=== PATIENT | male | born 1935 | race Caucasian/White ===

== ENCOUNTER → 2017-01-05 09:47 | Outpatient (CLI) | payer MEDICARE, OTHER ==
[2015-09-05 07:10] VITALS: BMI 27.1
[~2017-01-05 09:47] MED LIST: INVANZ 1 GM/NS 11 G1 IV; LEVAQUIN500 MG PO; NEXIUM40 MG PO; VITAMIN D31000 UNI2 PO; ZOSYN 3.3753.375 G1 IV
== END | disposition home or self-care (01) ==
LOC: D.ECHO 09:47
DX: R06.09 Other forms of dyspnea (principal); R94.31 Abnormal electrocardiogram [ECG] [EKG]; I49.3 Ventricular premature depolarization; I20.9 Angina pectoris, unspecified

== ENCOUNTER 2017-02-01 06:22 | Outpatient (CLI) | payer MEDICARE, OTHER ==
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
[2017-02-01] MEDS ORDERED: PROTONIX40 MG PO (06:41)
[2017-02-01 06:50] VITALS: BP 146/64; BMI 27.8
[2017-02-01 07:10] LABS: BASOPHILS 0.7 % (0-2); HEMATOCRIT 46.2 % (42.0-54.0); HEMOGLOBIN 15.9 g/dL (13.5-17.5); IMMATURE GRANULOCYTES 0.2 % (0-5); LYMPHOCYTES 24.7 % (15-50); MCH 31.5 pg (26.0-34.0); MCHC 34.4 g/dL (31.0-37.0); MCV 91.5 fL (80.0-100.0); MEAN PLATELET VOLUME 11.4 fL (7.4-10.4); MONOCYTES 10.7 % (2-11); NEUTROPHILS 52.7 % (40-80); PLATELET COUNT 133 10x3/uL (130-400); RBC 5.05 10x6/uL (4.20-6.10); RDW 12.7 % (11.5-14.5); WBC 5.8 10x3/uL (4.8-10.8)
[2017-02-01 07:22] LABS: ANION GAP 10.3 mmol/L (8-16); CARBON DIOXIDE 29.7 mmol/L (21.0-32.0); CREATININE - SERUM 1.2 mg/dL (0.6-1.3)
[2017-02-01] MEDS ORDERED: PLAVIX75 MG PO (09:46)
--- NOTE | 2017-02-01 09:50 | NUR ---
2L NC, NO RESP DISTRESS NOTED. RIGHT WRIST TR BAND CDI, NO BLEEDING OR HEMATOMA NOTED. NO C/O PAIN OR NAUSEA. ANGIOMAX GTT INFUSING PER ORDERS. FAMILY AT BEDSIDE, CALL LIGHT WITHIN REACH.
--- NOTE | 2017-02-01 10:09 | NUR ---
ANGIOMAX INFUSION COMPLETE.
--- NOTE | 2017-02-01 10:30 | NUR ---
1030 TR BAND RIGHT WRIST IS CDI, NO BLEEDING OR HEMATOMA NOTED. FINGERS WARM, CAP REFILL IS BRISK. PT DENIES ANY C/O CHEST PAIN OR NAUSEA. SANDWICH AND COFFEE SERVED. FAMILY AT BEDSIDE, CALL LIGHT IN REACH.
--- NOTE | 2017-02-01 11:03 | NUR ---
DENIES ANY C/O. CONCETTA GRAPES AND PO FLUIDS WITH NO C/O. TR BAND CDI, NO BLEEDING OR HEMATOMA NOTED. PULSES PALPABLE, FINGERS WARM. NSR, RATE 73, DENIES ANY C/O CHEST PAIN. MULTIPLE FAMILY AT BEDSIDE, CALL LIGHT IN REACH.
--- NOTE | 2017-02-01 11:45 | NUR ---
1145 PT AHS VOIDED 500 CC CLEAR YELLOW URINE USING URINAL. CONCETTA GRAPES AND PO FLUIDS WITH NO C/O NAUSEA. TR BAND CDI, NO BLEEDING OR HEMATOMA NOTED. FAMILY AT BEDSIDE, CALL LIGHT IS IN REACH.
--- NOTE | 2017-02-01 12:41 | NUR ---
1240 3 CC OF AIR REMOVED FROM TR BAND WITH NO BLEEDING OR HEMATOMA NOTED.
--- NOTE | 2017-02-01 13:45 | NUR ---
1345 IV DC'D WITH CATH INTACT. REVIEWED DC INSTRUCTIONS AND PT VERBALZES UNDERSTANDING. PT DRESSING FOR DC TO HOME.
--- NOTE | 2017-02-01 14:33 | NUR ---
1330 ALL AIR HAS BEEN REMOVED FROM TR BAND WITH NO BLEEDING OR HEMATOMA NOTED. PT DENIES ANY C/O. VSS. DAUGHTER AT BEDSIDE.
--- NOTE | 2017-02-01 14:35 | NUR ---
1400 DC INSTRUCTIONS HAVE BEEN REVIEWED WITH PT AND DAUGHTER WHO VERBALIZE UNDERSTANDING. [facility] HAS BEEN CALLED TO [facility] PER PT REQUEST. 2X2 AND TEGADERM TO RIGHT WRIST CATH SITE IS CDI, NO BLEEDING OR HEMATOMA NOTED. FINGERS WARM, CAP REFILL BRISK, PULSES TO RIGHT HAND PALPABLE. WRIST IMMOBILIZER IN PLACE. PT DENIES ANY C/O AT THIS TIME. PT ESCORTED TO PRIVATE AUTO VIA WC BY NURSE WTIH DAUGHTER DRIVING HIM HOME.
== END 2017-02-01 14:00 | disposition home or self-care (01) ==
LOC: D.CATH 06:22
PROVIDERS: Internal Medicine Cardiovascular Disease
DX: I20.9 Angina pectoris, unspecified (principal); R07.9 Chest pain, unspecified; R06.00 Dyspnea, unspecified; R94.30 Abnormal result of cardiovascular function study, unspecified; Z01.812 Encounter for preprocedural laboratory examination
CPT/HCPCS: 93458; C9600

== ENCOUNTER → 2017-03-17 17:14 | Outpatient (CLI) | payer MEDICARE, OTHER ==
[~2017-03-17 17:14] MED LIST changes: +PLAVIX75 MG PO; +PROTONIX40 MG PO
[2017-03-17 18:03] LABS: CHOL - HDL RATIO 2.7 ratio (2.3-4.9); LDL-HDL RATIO 1.2 ratio (1.5-3.5)
== END | disposition home or self-care (01) ==
LOC: D.LABREF 17:14
PROVIDERS: Internal Medicine Cardiovascular Disease
DX: E78.5 Hyperlipidemia, unspecified (principal)

== ENCOUNTER → 2017-08-18 09:12 | Outpatient (CLI) | payer MEDICARE, OTHER ==
--- NOTE | ~2017-08-18 | EC ---
PATIENT:GLENROY CRESPO DATE OF SERVICE: 08/18/17 SEX: M MEDICAL RECORD: [id number] DATE OF : 31 LOCATION:[facility] AGE OF PATIENT: 82 ADMISSION DATE: 08/18/17 REFERRING PHYSICIAN: INTERPRETING PHYSICIAN: CAMILLE CEDEÑO MD ECHOCARDIOGRAM REPORT ECHO CHARGES 4 ECHO COMPLETE Date: 08/18 CLINICAL DIAGNOSIS: DYSPNEA,ANGINA HX OF CAD ECHOCARDIOGRAPHIC MEASUREMENTS (adult normal given) AC root (d.<3.7cm) 4.0 cm LV Septum d (<1.2 cm> 1.5 cm Valve Excursion 1.9 cm LV Septum (systole) 1.6 cm Left Atria (s.<4.0cm> 3.6 cm LVPW d(<1.2cm) 1.4 cm RV (d.<2.3cm) 3.8 cm LVPW (sytole) 1.9 cm LV diastole(<5.6CM) 5.8 cm MV E-F(>70mm/sec) cm LV systole 4.0 cm LVOT Diameter 1.8 cm MV exc.(>10mm) 1.4 cm Est.ejection fraction (50-75%) % DOPPLER: LVIT cm/sec A 108 cm/sec E 67.0 cm/sec LA cm/sec RVSP 36 mmHg LVOT 113 cm/sec AOP1/2T m/s Asc. Ao 136 cm/sec RVOT cm/sec RA cm/sec PA 122 cm/sec AV Gradient Peak 7.42 mmHg AV Mean 3.62 mmHg AV Area 2.0 cm MV Gradient Peak 5.44 mmHg MV Mean 1.81 mmHg MV Area cm COMMENTS: Courtroom Reporter: 2 MANINDER RAMIREZ Florist Designer: 4 Dr. Cedeño TAPE# PACS Pericardial Effusion N DATE OF SERVICE: PROCEDURE: The patient underwent transthoracic echocardiogram. FINDINGS: 1. The left ventricle has left ventricular hypertrophy, inflow characteristics consistent with diastolic dysfunction, ejection fraction of 60%. No obvious regional wall motion abnormalities. There was considerable amount of heart rate variability and there was some bradycardia we had visualized during the exam. 2. The right ventricle is dilated with good function. ECHOCARDIOGRAM REPORT [id number] GLENROY CRESPO 3. The left atrium is normal size, normal function. 4. The aortic valve is sclerotic, but otherwise normal. 5. Mitral valve is normal structurally with trace to mild mitral regurgitation. 6. Tricuspid valve has trace to mild tricuspid regurgitation. RVSP is mildly elevated at 30-35 mmHg. 7. The pericardium is normal. 8. The right atrium is mildly dilated. CONCLUSION: This is a patient with normal LV systolic function and evidence of hypertensive heart disease. TRANSINT:[id number] Voice Confirmation ID: [id number] DOCUMENT ID: [id number] CAMILLE CEDEÑO MD at 0819 CC: [id number] DICTATION DATE: 08/23/17 1108 MANAGER ASSET MANAGEMENT: 08/23/17 1210 DEP CLI 08/18/17 [facility] [address] [facility] [place] [address]
== END | disposition home or self-care (01) ==
LOC: D.ECHO 09:12
DX: R06.00 Dyspnea, unspecified (principal); I20.9 Angina pectoris, unspecified

== ENCOUNTER → 2017-11-10 17:50 | Outpatient (CLI) | payer MEDICARE, OTHER ==
[2017-11-10 18:37] LABS: CHOL - HDL RATIO 2.9 ratio (2.3-4.9); LDL-HDL RATIO 0.9 ratio (1.5-3.5)
== END | disposition home or self-care (01) ==
LOC: D.LABREF 17:50
PROVIDERS: Internal Medicine Cardiovascular Disease
DX: E78.5 Hyperlipidemia, unspecified (principal)

== ENCOUNTER → 2018-11-24 08:57 | Outpatient (CLI) | payer MEDICARE, OTHER ==
--- NOTE | 2018-11-28 09:29 | EC ---
PATIENT:GLENROY CRESPO DATE OF SERVICE: 11/24/18 SEX: M MEDICAL RECORD: [id number] DATE OF : [birth year] LOCATION:D.[facility] AGE OF PATIENT: 83 ADMISSION DATE: 11/24/18 REFERRING PHYSICIAN: INTERPRETING PHYSICIAN: NETO VILLAR MD ECHOCARDIOGRAM REPORT ECHO CHARGES 4 ECHO COMPLETE Date: 11/24/18 CLINICAL DIAGNOSIS: MURMUR H/O CAD/HTN ECHOCARDIOGRAPHIC MEASUREMENTS (adult normal given) AC root (d.<3.7cm) 3.9 cm LV Septum d (<1.2 cm> 1.6 cm Valve Excursion 2.0 cm LV Septum (systole) 1.9 cm Left Atria (s.<4.0cm> 3.5 cm LVPW d(<1.2cm) 1.4 cm RV (d.<2.3cm) 2.4 cm LVPW (sytole) 2.1 cm LV diastole(<5.6CM) 5.2 cm MV E-F(>70mm/sec) cm LV systole 3.5 cm LVOT Diameter 2.1 cm MV exc.(>10mm) cm Est.ejection fraction (50-75%) % DOPPLER: LVIT cm/sec A 108 cm/sec E 71.0 cm/sec LA cm/sec RVSP 29.0 mmHg LVOT 104 cm/sec AOP1/2T m/s Asc. Ao 114 cm/sec RVOT 59.0 cm/sec RA cm/sec PA 104 cm/sec AV Gradient Peak 5.2 mmHg AV Mean 3.2 mmHg AV Area 2.9 cm MV Gradient Peak 7.2 mmHg MV Mean 1.9 mmHg MV Area cm COMMENTS: [facility] Director: Koki BROWNOE Supervisor Cytogenetic Laboratory: 3 Dr. Cunningham TAPE# PACS Pericardial Effusion N DATE OF SERVICE: 11/24/2018 Adequate 2-D echo, color-flow and spectral Doppler, and M-mode. LVH is present. LV internal dimensions are normal. Wall motion is normal. EF is greater than or equal to 55%. Aortic valve sclerosis without stenosis by Doppler interrogation. Left atrium is normal at 3.5 cm. Mitral valve shows no prolapse. Trace MR. Right-sided chambers are grossly normal. Trace TR. TRANSINT:[id number] Voice Confirmation ID: [id number] DOCUMENT ID: [id number] ECHOCARDIOGRAM REPORT [id number] GLENROY CRESPO GREGORY A MD at 0929 CC: [id number] DICTATION DATE: 11/27/18 1509 TAR ROOFER: 11/27/18 1558 DEP CLI 11/24/18 [place] [id number] [place] [id number]
== END | disposition home or self-care (01) ==
LOC: D.HCCARDIO 08:57
PROVIDERS: ATTEND Internal Medicine Interventional Cardiology
DX: R01.1 Cardiac murmur, unspecified (principal)

== ENCOUNTER → 2019-10-03 13:10 | Outpatient (CLI) | payer MEDICARE, OTHER ==
--- NOTE | ~2019-10-03 | EC ---
PATIENT:GLENROY CRESPO DATE OF SERVICE: 10/03/19 SEX: M MEDICAL RECORD: [id number] DATE OF : [birth year] LOCATION:D.[facility] AGE OF PATIENT: 84 ADMISSION DATE: 10/03/19 REFERRING PHYSICIAN: INTERPRETING PHYSICIAN: NETO VILLAR MD ECHOCARDIOGRAM REPORT ECHO CHARGES 4 ECHO COMPLETE Date: 10/03/19 CLINICAL DIAGNOSIS: HX OF CAD/HTN/AORTIC SCLEROSIS ECHOCARDIOGRAPHIC MEASUREMENTS (adult normal given) AC root (d.<3.7cm) 4.0 cm LV Septum d (<1.2 cm> 1.3 cm Valve Excursion 1.8 cm LV Septum (systole) 1.5 cm Left Atria (s.<4.0cm> 3.7 cm LVPW d(<1.2cm) 1.3 cm RV (d.<2.3cm) 4.2 cm LVPW (sytole) 1.6 cm LV diastole(<5.6CM) 5.7 cm MV E-F(>70mm/sec) cm LV systole 4.0 cm LVOT Diameter 2.0 cm MV exc.(>10mm) 1.3 cm Est.ejection fraction (50-75%) % DOPPLER: LVIT cm/sec A 105.0cm/sec E 63.0 cm/sec LA cm/sec RVSP 23 mmHg LVOT 99 cm/sec AOP1/2T m/s Asc. Ao 122 cm/sec RVOT 86 cm/sec RA cm/sec PA 94 cm/sec AV Gradient Peak 5.97 mmHg AV Mean 2.52 mmHg AV Area 2.7 cm MV Gradient Peak 5.58 mmHg MV Mean 1.65 mmHg MV Area cm COMMENTS: Pan Dumper: 2 MANINDER RAMIREZ Colored Liquid Plastic Applier: 3 Dr. Cunningham TAPE# PACS Pericardial Effusion N DATE OF SERVICE: Adequate 2D, color flow imaging, spectral Doppler, and M-Mode. Mild LVH. LV internal dimensions are normal. Wall motion is normal. EF is greater than or equal to 55%. Aortic valve is tricuspid. No evidence of stenosis by Doppler interrogation. Left atrium is normal at 3.7 cm. Mitral valve shows no prolapse. Trace MR. Right-sided chambers are grossly normal. Trace TR. ECHOCARDIOGRAM REPORT [id number] GLENROY CRESPO TRANSINT:[id number] Voice Confirmation ID: [id number] DOCUMENT ID: [id number] NETO VILLAR MD CC: [id number] DICTATION DATE: 10/04/19 1527 SCARFING MACHINE OPERATOR: 10/04/19 1844 DEP CLI 10/03/19 [place] [id number] [place] [id number]
== END | disposition home or self-care (01) ==
LOC: D.HCCECHO 08-27 09:30
PROVIDERS: ATTEND Internal Medicine Interventional Cardiology
DX: I10 Essential (primary) hypertension (principal)

== ENCOUNTER 2020-06-13 04:53 | Emergency (ER) | payer MEDICARE ==
[~2020-06-13] VITALS: Ht 172.7 cm; Wt 81.4 kg
[2020-06-13 04:56] VITALS: Ht 172.7 cm; Wt 81.4 kg
[2020-06-13 05:26] LABS: BASOPHILS 0.3 % (0-2); HEMATOCRIT 44.8 % (42.0-54.0); HEMOGLOBIN 15.5 g/dL (13.5-17.5); IMMATURE GRANULOCYTES 0.1 % (0-5); LYMPHOCYTE ABS# 1.14 10x3/uL (1.32-3.57); LYMPHOCYTES 16.8 % (15-50); MCH 31.1 pg (26.0-34.0); MCHC 34.6 g/dL (31.0-37.0); MEAN PLATELET VOLUME 10.1 fL (7.4-10.4); MONOCYTES 10.4 % (2-11); NEUTROPHIL ABS# 4.58 10x3/uL (1.78-5.38); NEUTROPHILS 67.4 % (40-80); PLATELET COUNT 119 10x3/uL (130-400); RBC 4.98 10x6/uL (4.20-6.10); RDW 13.1 % (11.5-14.5); WBC 6.8 10x3/uL (4.8-10.8)
[2020-06-13 05:53] LABS: CALC OSMOLALITY 286 mosm/kg (275-300); CALCIUM 8.6 mg/dL (8.5-10.1); CARBON DIOXIDE 27.4 mmol/L (21.0-32.0); CHLORIDE - SERUM 107 mmol/L (98-107); CREATININE - SERUM 1.1 mg/dL (0.6-1.3); GLUCOSE 152 mg/dL (74-106); POTASSIUM - SERUM 3.7 mmol/L (3.5-5.1); SODIUM 142 mmol/L (136-145); UREA NITROGEN 16 mg/dL (7-18); eGFR NON AFRICAN AMERICAN 67 mL/min (90-120)
[2020-06-13 06:03] LABS: APTT 26.7 SECONDS (22.8-39.4); INR 1.15 (0.85-1.17); PROTIME 13.6 SECONDS (11.6-15.0)
[2020-06-13 06:09] LABS: ALBUMIN 3.6 g/dL (3.4-5.0); ALKALINE PHOSPHATASE 104 U/L (30-120); ALT (SGPT) 26 U/L (10-68); BILIRUBIN - TOTAL 0.58 mg/dL (0.2-1.3); CKMB 0.9 U/L (0.0-3.6); CREATINE KINASE 60 UL (21-232); MAGNESIUM - SERUM 1.6 mg/dL (1.8-2.4); PROTEIN - SERUM 7.2 g/dL (6.4-8.2); THYROID STIMULATING HORMONE 3.32 uIU/mL (0.36-3.74)
[2020-06-13 06:10] LABS: TROPONIN-I < 0.017 ng/mL (0.000-0.060)
[2020-06-13 07:03] LABS: BILIRUBIN NEGATIVE (NEGATIVE); KETONE NEGATIVE (NEGATIVE); NITRITE NEGATIVE (NEGATIVE); UROBILINOGEN NORMAL mg/dL (< 2)
[2020-06-13 07:10] VITALS: BP 161/98
[2020-06-13 07:12] LABS: UDS - AMPHET NEGATIVE QUAL (NEGATIVE); UDS - BARB NEGATIVE QUAL (NEGATIVE); UDS - BENZO NEGATIVE QUAL (NEGATIVE); UDS - COCAINE NEGATIVE QUAL (NEGATIVE); UDS - OPIATE NEGATIVE QUAL (NEGATIVE); UDS - PCP NEGATIVE QUAL (NEGATIVE); UDS - THC NEGATIVE QUAL (NEGATIVE)
[2020-06-13 07:15] LABS: SARS-CoV-2 ANTIGEN NEGATIVE- SARS-COV-2 (NEGATIVE)
== END 2020-06-13 09:05 | disposition short-term general hospital (02) ==
LOC: D.ER 04:53
PROVIDERS: Family Medicine
DX: I63.9 Cerebral infarction, unspecified (principal); K21.9 Gastro-esophageal reflux disease without esophagitis

== ENCOUNTER 2020-06-17 10:29 | Inpatient (IN) | payer MEDICARE, OTHER ==
[~2020-06-17] VITALS: Ht 172.7 cm; Wt 89.4 kg
--- NOTE | 2020-06-17 11:00 | NUR ---
ARRIVED TO ER WITH C/O CHOKING ON LIQUIDS AND UNABLE TO WALK, PER FAMILY. 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 SINCE THE D/C PT HAS STARTED CHOKING ON LIQUIDS AND IS NOT ABLE TO AMBULATE. IV SITED IN RIGHT HAND WITH 22 GAUGE. PT ON ROOM AIR. RESTING QUIETLY.
[2020-06-17 11:28] LABS: BASOPHILS 0.2 % (0-2); HEMATOCRIT 47.4 % (42.0-54.0); HEMOGLOBIN 16.6 g/dL (13.5-17.5); IMMATURE GRANULOCYTES 0.2 % (0-5); LYMPHOCYTE ABS# 1.46 10x3/uL (1.32-3.57); LYMPHOCYTES 14.7 % (15-50); MCH 31.2 pg (26.0-34.0); MCV 89.1 fL (80.0-100.0); MEAN PLATELET VOLUME 10.7 fL (7.4-10.4); MONOCYTES 8.6 % (2-11); NEUTROPHILS 75.3 % (40-80); PLATELET COUNT 132 10x3/uL (130-400); RBC 5.32 10x6/uL (4.20-6.10)
[2020-06-17 11:35] LABS: CALC OSMOLALITY 286 mosm/kg (275-300); CARBON DIOXIDE 29.1 mmol/L (21.0-32.0); CHLORIDE - SERUM 104 mmol/L (98-107); CREATININE - SERUM 1.3 mg/dL (0.6-1.3); GLUCOSE 144 mg/dL (74-106); SODIUM 141 mmol/L (136-145); UREA NITROGEN 20 mg/dL (7-18); eGFR NON AFRICAN AMERICAN 55 mL/min (90-120)
[2020-06-17 11:37] LABS: APTT 27.3 SECONDS (22.8-39.4); INR 1.17 (0.85-1.17); PROTIME 13.8 SECONDS (11.6-15.0)
[2020-06-17 11:53] LABS: ALKALINE PHOSPHATASE 111 U/L (30-120); ALT (SGPT) 35 U/L (10-68); BILIRUBIN - TOTAL 1.03 mg/dL (0.2-1.3); CKMB 1.6 U/L (0.0-3.6); CREATINE KINASE 212 UL (21-232); MAGNESIUM - SERUM 1.6 mg/dL (1.8-2.4); PROTEIN - SERUM 7.5 g/dL (6.4-8.2); TROPONIN-I < 0.017 ng/mL (0.000-0.060)
[2020-06-17 12:11] VITALS: BP 180/100
[2020-06-17 14:04] VITALS: BP 177/96
[2020-06-17 14:30] LABS: CHOL - HDL RATIO 2.8 ratio (2.3-4.9); LDL-HDL RATIO 1.1 ratio (1.5-3.5)
[2020-06-17 15:05] LABS: CKMB 1.6 U/L (0.0-3.6)
[2020-06-17 15:06] LABS: CREATINE KINASE 341 UL (21-232); TROPONIN-I < 0.017 ng/mL (0.000-0.060)
[2020-06-17 16:04] VITALS: BP 161/89
[2020-06-17 17:22] VITALS: BP 151/82
[2020-06-17 20:00] VITALS: BP 170/86
[2020-06-17 21:13] LABS: CKMB 0.8 U/L (0.0-3.6); CREATINE KINASE 264 UL (21-232); TROPONIN-I < 0.017 ng/mL (0.000-0.060)
--- NOTE | 2020-06-17 21:44 | NUR ---
PT RESTING IN BED. PT HAS NO COMPLAINTS OF PAIN RIGHT NOW. PT STATES HE JUST WANTS SOME WATER TO WET HIS MOUTH. NO DIET ORDERS AT THIS TIME. OFFERED LEMON SWABS. BED IN LOWEST POSITION. CALL PÉREZ LIGHT IS WITHIN REACH FOR USE.
[2020-06-18 03:05] LABS: BASOPHILS 0.2 % (0-2); EOSINOPHILS 0.5 % (0-7); HEMATOCRIT 45.2 % (42.0-54.0); HEMOGLOBIN 15.7 g/dL (13.5-17.5); IMMATURE GRANULOCYTES 0.2 % (0-5); MCH 30.9 pg (26.0-34.0); MCHC 34.7 g/dL (31.0-37.0); MONOCYTES 8.6 % (2-11); NEUTROPHIL ABS# 6.93 10x3/uL (1.78-5.38); NEUTROPHILS 73.5 % (40-80); PLATELET COUNT 124 10x3/uL (130-400); RBC 5.08 10x6/uL (4.20-6.10); WBC 9.4 10x3/uL (4.8-10.8)
[2020-06-18 03:23] LABS: ALBUMIN 3.5 g/dL (3.4-5.0); ALKALINE PHOSPHATASE 97 U/L (30-120); ALT (SGPT) 32 U/L (10-68); BILIRUBIN - TOTAL 1.07 mg/dL (0.2-1.3); CALC OSMOLALITY 283 mosm/kg (275-300); CALCIUM 8.4 mg/dL (8.5-10.1); CARBON DIOXIDE 24.3 mmol/L (21.0-32.0); CHLORIDE - SERUM 104 mmol/L (98-107); CKMB 0.1 U/L (0.0-3.6); CREATINE KINASE 186 UL (21-232); CREATININE - SERUM 1.1 mg/dL (0.6-1.3); GLUCOSE 161 mg/dL (74-106); POTASSIUM - SERUM 3.8 mmol/L (3.5-5.1); PROTEIN - SERUM 7.3 g/dL (6.4-8.2); SODIUM 139 mmol/L (136-145); UREA NITROGEN 22 mg/dL (7-18); eGFR NON AFRICAN AMERICAN 67 mL/min (90-120)
[2020-06-18 03:26] LABS: TROPONIN-I < 0.017 ng/mL (0.000-0.060)
[2020-06-18 04:00] VITALS: BP 172/90
[2020-06-18 09:28] VITALS: BP 147/81
[2020-06-18 09:38] LABS: BACTERIA FEW HPF (NONE SEEN); BILIRUBIN NEGATIVE (NEGATIVE); KETONE MODERATE mg/dL (NEGATIVE); NITRITE NEGATIVE (NEGATIVE); SQUAMOUS EPITHELIAL OCC HPF (0-4); UROBILINOGEN NORMAL mg/dL (< 2); WHITE CELLS - URINE RARE HPF (0-1)
[2020-06-18 12:31] VITALS: BP 166/85
[2020-06-18 13:56] VITALS: Ht 172.7 cm; Wt 89.4 kg
--- NOTE | 2020-06-18 16:16 | NUR ---
OT NOTE: METZ ASKED TO ASSIST WITH BED MOBILITY AND POSITONING . PT REQUIRED MAX A. [phone] THANK YOU,LASHAY RANDLE
[2020-06-18 16:56] VITALS: BP 139/71
[2020-06-18 20:00] VITALS: BP 134/64
--- NOTE | 2020-06-18 23:05 | NUR ---
PT RESTING IN BED AT THIS TIME. NO COMPLAINTS OF PAIN NOR DISTRESS FROM PATIENT. PT IS VERY SLEEPY BUT ALERT AND EASY TO AROUSE. BED IN LOW POSITON WITH CALL LIGHT IN REACH.
[2020-06-19] VITALS: BP 132/66
[2020-06-19 04:00] VITALS: BP 145/65
[2020-06-19 06:40] LABS: BASOPHILS 0.2 % (0-2); HEMATOCRIT 42.8 % (42.0-54.0); HEMOGLOBIN 14.5 g/dL (13.5-17.5); IMMATURE GRANULOCYTES 0.4 % (0-5); LYMPHOCYTE ABS# 1.75 10x3/uL (1.32-3.57); LYMPHOCYTES 21.7 % (15-50); MCH 30.9 pg (26.0-34.0); MCHC 33.9 g/dL (31.0-37.0); MEAN PLATELET VOLUME 10.8 fL (7.4-10.4); MONOCYTES 10.9 % (2-11); NEUTROPHIL ABS# 5.05 10x3/uL (1.78-5.38); NEUTROPHILS 62.8 % (40-80); PLATELET COUNT 104 10x3/uL (130-400); RDW 13.5 % (11.5-14.5); WBC 8.1 10x3/uL (4.8-10.8)
[2020-06-19 06:42] LABS: MCV 91.1 fL (80.0-100.0)
[2020-06-19 07:32] LABS: ALBUMIN 3.3 g/dL (3.4-5.0); ANION GAP 12.9 mmol/L (8-16); BILIRUBIN - TOTAL 0.87 mg/dL (0.2-1.3); CALCIUM 8.5 mg/dL (8.5-10.1); CARBON DIOXIDE 24.6 mmol/L (21.0-32.0); CREATININE - SERUM 1.2 mg/dL (0.6-1.3); POTASSIUM - SERUM 3.5 mmol/L (3.5-5.1); PROTEIN - SERUM 6.5 g/dL (6.4-8.2)
--- NOTE | 2020-06-19 07:49 | NUR ---
IN BED. AROUSES TO VOICE. DENIES NEEDS AT THIS TIME. BED LOW POSITION, CALL LIGHT IN REACH. FREE FROM SIGNS OF DISTRESS. WILL CONTINUE TO MONITOR.
[2020-06-19 07:51] VITALS: BP 143/63
[2020-06-19 11:05] VITALS: BP 122/76
--- NOTE | 2020-06-19 15:59 | NUR ---
OT NOTE: PT COMPLETED EOB SITTING WITH MAX A . PT COMPLETED WT BEARING IN RUE. PT COMPLETED RUE PROM . PT COMPLETED POSITIONING WITH MAX A. PT IS MORE ALERT TODAY. [phone] THANK YOU,LASHAY RANDLE
--- NOTE | 2020-06-19 16:39 | NUR ---
REHAB PRESCREENING Rehab referral received and chart reviewed. Mr. Schmitz is a good candidate for acute inpatient rehab. Rehab will continue to follow. Thank you for this referral! Abby Gunn, NURSE [facility] Rehab PD
--- NOTE | 2020-06-19 16:42 | NUR ---
OT NOTE: PT DOING BETTER TODAY. MORE ALERT. EYES WERE OPEN. FOLLOWING SIMPLE COMMANDS. BED MOB WITH MOD ASSIST; STATIC SITTING ON EOB WITH L HAND IN WT BEARING WITH MAX ASSIST. NO ACTIVE MOVEMENT IN L HAND, HOWEVER, TOLERATES WT BEARING AND PROM WITHOUT DIFFICULTY. BACK TO BED WITH MAX ASSIST X 2. RECOMMEND IP REHAB WHEN MEDICALLY STABLE. MENA RICHTER, OTR/L [phone]
[2020-06-19 16:48] VITALS: BP 140/67
--- NOTE | 2020-06-19 16:51 | NUR ---
IN BED RESTING. AROUSES TO VOICE, DENIES NEEDS AT THIS TIME. BED LOW POSITION, CALL LIGHT IN REACH. TOTAL FEEDER SIGNS PLACED AT HEAD OF BED AND ON DOOR. WILL CONTINUE TO MONITOR.
--- NOTE | 2020-06-19 17:27 | NUR ---
FACIAL GROOMING, AND ORAL CARE COMPLETED. MAX ASSIST. PATIENT REFUSING TO EAT AT THIS TIME. TOLD PATIENT NURSE WILL BE BACK IN A LITTLE BIT TO SEE IF HE WAS HUNGRY.
[2020-06-19 20:00] VITALS: BP 141/65
--- NOTE | 2020-06-19 21:00 | NUR ---
PT STATES HE FEELS LIKE HE IS GOING TO "BUST" BECAUSE HE NEEDS TO VOID SO BAD. PT IS DISTENDED AND TENDER TO TOUCH. BLADDER SCAN SHOWED 900ML. CALLED JEFFERY JONAS APN, STATES TO PLACE PICKENS. PLACED 16F PICKENS, PT TOLERATED WELL. IMMEDIATE 1000ML RETURN. PT STATES HE FEELS MUCH BETTER, THAT HE HAS ONLY BEEN ABLE TO VOID 50ML AT TIME AND JUST FELT LIKE HE COULD NOT GET ALL THE URINE OUT
[2020-06-20 04:00] VITALS: BP 146/83
[2020-06-20 06:56] LABS: BASOPHILS 0.4 % (0-2); EOSINOPHILS 7.3 % (0-7); HEMATOCRIT 41.5 % (42.0-54.0); IMMATURE GRANULOCYTES 0.3 % (0-5); LYMPHOCYTES 20.2 % (15-50); MCH 30.7 pg (26.0-34.0); MCHC 33.7 g/dL (31.0-37.0); MEAN PLATELET VOLUME 11.1 fL (7.4-10.4); MONOCYTES 10.5 % (2-11); NEUTROPHIL ABS# 4.56 10x3/uL (1.78-5.38); NEUTROPHILS 61.3 % (40-80); PLATELET COUNT 101 10x3/uL (130-400); RBC 4.56 10x6/uL (4.20-6.10); RDW 13.5 % (11.5-14.5); WBC 7.4 10x3/uL (4.8-10.8)
[2020-06-20 07:10] LABS: ALBUMIN 3.2 g/dL (3.4-5.0); ALKALINE PHOSPHATASE 87 U/L (30-120); ALT (SGPT) 30 U/L (10-68); BILIRUBIN - TOTAL 0.73 mg/dL (0.2-1.3); CALC OSMOLALITY 282 mosm/kg (275-300); CALCIUM 8.3 mg/dL (8.5-10.1); CARBON DIOXIDE 27.5 mmol/L (21.0-32.0); CHLORIDE - SERUM 107 mmol/L (98-107); GLUCOSE 114 mg/dL (74-106); POTASSIUM - SERUM 3.8 mmol/L (3.5-5.1); PROTEIN - SERUM 6.4 g/dL (6.4-8.2); SODIUM 140 mmol/L (136-145); UREA NITROGEN 21 mg/dL (7-18); eGFR NON AFRICAN AMERICAN 75 mL/min (90-120)
--- NOTE | 2020-06-20 07:15 | NUR ---
RECIEVED BEDSIDE REPORT. DENIES NEEDS AT THIS TIME. BED LOW POSITION, CALL LIGHT IN REACH. FREE FROM SIGNS OF DISTRESS. WILL CONTINUE TO MONITOR.
[2020-06-20 07:44] VITALS: BP 150/82
--- NOTE | 2020-06-20 07:55 | EC ---
PATIENT:GLENROY CRESPO DATE OF SERVICE: 06/17/20 SEX: M MEDICAL RECORD: [id number] DATE OF : 31 LOCATION:[facility] AGE OF PATIENT: 85 ADMISSION DATE: 06/17/20 REFERRING PHYSICIAN: INTERPRETING PHYSICIAN: NTEO VILLAR MD ECHOCARDIOGRAM REPORT ECHO CHARGES 4 ECHO COMPLETE Date: 06/18/20 CLINICAL DIAGNOSIS: CVA ECHOCARDIOGRAPHIC MEASUREMENTS (adult normal given) AC root (d.<3.7cm) 3.2 cm LV Septum d (<1.2 cm> 0.9 cm Valve Excursion 1.8 cm LV Septum (systole) 1.4 cm Left Atria (s.<4.0cm> 3.1 cm LVPW d(<1.2cm) 1.0 cm RV (d.<2.3cm) 2.6 cm LVPW (sytole) 1.5 cm LV diastole(<5.6CM) 5.3 cm MV E-F(>70mm/sec) cm LV systole 4.0 cm LVOT Diameter 1.8 cm MV exc.(>10mm) 0.9 cm Est.ejection fraction (50-75%) % DOPPLER: LVIT cm/sec A 115 cm/sec E 70 cm/sec LA cm/sec RVSP 19 mmHg LVOT 110 cm/sec AOP1/2T m/s Asc. Ao 123 cm/sec RVOT 71 cm/sec RA cm/sec PA 87 cm/sec AV Gradient Peak 6.1 mmHg AV Mean 3.4 mmHg AV Area 2.7 cm MV Gradient Peak 7.3 mmHg MV Mean 3.3 mmHg MV Area cm COMMENTS: Pony Roll Finisher: Mathieu AVILA Errand Runner: 3 Dr. Cunningham TAPE# Pericardial Effusion N DATE OF SERVICE: 06/19/2020 Adequate 2D, color flow imaging, spectral Doppler, and M-Mode. FINDINGS: No LVH. LV internal dimension is normal. Wall motion is normal. EF is greater than or equal to 55%. Aortic valve is tricuspid. No evidence of stenosis by Doppler interrogation. Left atrium is normal. Mitral valve shows no prolapse. Trace MR. Right side is grossly normal. Trace TR. TRANSINT:[id number] Voice Confirmation ID: [id number] DOCUMENT ID: [id number] ECHOCARDIOGRAM REPORT [id number] GLENROY CRESPO NETO VILLAR MD at 0755 CC: [id number] DICTATION DATE: 06/19/20 1635 FLOODPLAIN MANAGER: 06/19/20 1709 ADM IN [place] [id number] [place] [id number]
[2020-06-20 11:29] VITALS: BP 147/69
--- NOTE | 2020-06-20 13:58 | NUR ---
Nutrition Re-Assessment Diet: Regular Puree Honey Thick Liquids, total feeder PO intake: ~63% average x last 4 meals. Last BM: none recorded since admit Wt: 197# (07/19/20) Meds noted: probiotics, abx, NS@50 Labs noted: Glu 114(H), alb 3.2(L) Estimated nutrition needs and nutrition diagnosis remain unchanged from initial nutrition assessment at this time. Progressing towards nutrition goals. Recommendations/Interventions: -Recommend continue PO diet per BOX CAR LOADER recommendations. -Continue 1:1 feedings as needed and encourage PO intake at meal times. -RD will continue to monitor PO intake and wt trend. -RD will follow-up 06/24/20.
--- NOTE | 2020-06-20 15:20 | NUR ---
OT NOTE: PT COMPLETED WT BEARING ON LUE AT EOB WITH MOD A. PT COMPLETED BED MOB WITH MIN-MOD A. PT COMPLETED SIT TO STAND WITH MOD A. PT REQUIRED TOTAL A FOR LUE POSITIONING ON RW. [phone] THANK YOU,LASHAY RANDLE
[2020-06-20 16:10] VITALS: BP 138/68
--- NOTE | 2020-06-20 16:48 | NUR ---
IN BED. DENIES NEEDS AT THIS TIME. WAITING ON DINNER TO BE DELIVERED. WILL CONTINUE TO MONITOR.
[2020-06-20 21:08] VITALS: BP 162/76
--- NOTE | 2020-06-21 | NUR ---
PT WOKE UP CONFUSED TO TIME. STATED HE NEEDED TO GET DRESSED TO MOVE TO REHAB. REORIENTED PT EASILY. NO OTHER NEEDS. WILL CONTINUE TO MONITOR.
[2020-06-21 01:26] VITALS: BP 155/82
[2020-06-21 05:33] LABS: BASOPHILS 0.4 % (0-2); EOSINOPHILS 6.3 % (0-7); HEMATOCRIT 42.5 % (42.0-54.0); HEMOGLOBIN 14.6 g/dL (13.5-17.5); IMMATURE GRANULOCYTES 0.3 % (0-5); LYMPHOCYTE ABS# 1.26 10x3/uL (1.32-3.57); LYMPHOCYTES 16.1 % (15-50); MCH 30.9 pg (26.0-34.0); MCHC 34.4 g/dL (31.0-37.0); MCV 89.9 fL (80.0-100.0); MEAN PLATELET VOLUME 11.4 fL (7.4-10.4); MONOCYTES 8.7 % (2-11); NEUTROPHIL ABS# 5.36 10x3/uL (1.78-5.38); NEUTROPHILS 68.2 % (40-80); PLATELET COUNT 108 10x3/uL (130-400); RBC 4.73 10x6/uL (4.20-6.10); WBC 7.8 10x3/uL (4.8-10.8)
[2020-06-21 06:22] LABS: ALBUMIN 3.2 g/dL (3.4-5.0); ALKALINE PHOSPHATASE 89 U/L (30-120); ALT (SGPT) 27 U/L (10-68); BILIRUBIN - TOTAL 0.79 mg/dL (0.2-1.3); CALC OSMOLALITY 284 mosm/kg (275-300); CALCIUM 8.7 mg/dL (8.5-10.1); CHLORIDE - SERUM 107 mmol/L (98-107); CREATININE - SERUM 0.8 mg/dL (0.6-1.3); GLUCOSE 131 mg/dL (74-106); POTASSIUM - SERUM 3.4 mmol/L (3.5-5.1); PROTEIN - SERUM 6.7 g/dL (6.4-8.2); SODIUM 141 mmol/L (136-145); UREA NITROGEN 18 mg/dL (7-18); eGFR NON AFRICAN AMERICAN > 90 mL/min (90-120)
[2020-06-21 06:26] VITALS: BP 128/61
[2020-06-21 08:26] VITALS: BP 152/89
--- NOTE | 2020-06-21 08:45 | NUR ---
PATIENT IN BED WITH IV INTACT. NO COMPLAINTS OR SIGNS OF DISTRESS. PICKENS INTACT. BED ALARM ON. CALL LIGHT WITHIN REACH.
--- NOTE | 2020-06-21 11:45 | NUR ---
PATIENT SITTING UP IN CHAIR AT THIS TIME. NO COMPLAINTS. CHAIR ALARM ON. CALL LIGHT WITHIN REACH.
[2020-06-21 13:25] VITALS: BP 141/76
--- NOTE | 2020-06-21 14:24 | NUR ---
ABLE TO GET TO SOB AND STAND WITH MIN ASSIT UNBALE TO MOVE HIS FEET AND NEEDS ALOT OF HELP TURNING TO THE CHAIR SAFE TO TRANSFER WITH 2 PEOPLE
[2020-06-21 17:11] VITALS: BP 136/80
--- NOTE | 2020-06-21 18:55 | NUR ---
PATIENT IN BED WITH IV INTACT. NO COMPLAINTS OR SIGNS OF DISTRESS. PICKENS INTACT. FAMILY AT BEDSIDE. CALL LIGHT WITHIN REACH.
[2020-06-21 20:09] VITALS: BP 145/76
[2020-06-22 00:16] VITALS: BP 140/66
[2020-06-22 05:04] VITALS: BP 157/76
[2020-06-22 07:08] LABS: ALBUMIN 3.2 g/dL (3.4-5.0); ALKALINE PHOSPHATASE 90 U/L (30-120); BILIRUBIN - TOTAL 0.87 mg/dL (0.2-1.3); CALC OSMOLALITY 281 mosm/kg (275-300); CALCIUM 8.9 mg/dL (8.5-10.1); CARBON DIOXIDE 24.7 mmol/L (21.0-32.0); CHLORIDE - SERUM 106 mmol/L (98-107); CREATININE - SERUM 0.8 mg/dL (0.6-1.3); GLUCOSE 111 mg/dL (74-106); POTASSIUM - SERUM 3.9 mmol/L (3.5-5.1); PROTEIN - SERUM 6.9 g/dL (6.4-8.2); SODIUM 140 mmol/L (136-145); UREA NITROGEN 17 mg/dL (7-18); eGFR NON AFRICAN AMERICAN > 90 mL/min (90-120)
[2020-06-22 07:09] LABS: ALT (SGPT) 34 U/L (10-68)
[2020-06-22 07:31] LABS: BASOPHILS 0.6 % (0-2); EOSINOPHILS 7.2 % (0-7); HEMATOCRIT 44.3 % (42.0-54.0); HEMOGLOBIN 15.2 g/dL (13.5-17.5); IMMATURE GRANULOCYTES 0.4 % (0-5); LYMPHOCYTE ABS# 1.15 10x3/uL (1.32-3.57); LYMPHOCYTES 16.6 % (15-50); MCH 31.3 pg (26.0-34.0); MCHC 34.3 g/dL (31.0-37.0); MCV 91.3 fL (80.0-100.0); MEAN PLATELET VOLUME 11.6 fL (7.4-10.4); MONOCYTES 8.8 % (2-11); NEUTROPHILS 66.4 % (40-80); PLATELET COUNT 115 10x3/uL (130-400); RBC 4.85 10x6/uL (4.20-6.10); RDW 13.3 % (11.5-14.5); WBC 6.9 10x3/uL (4.8-10.8)
[2020-06-22 09:17] VITALS: BP 150/85
[2020-06-22 12:21] VITALS: BP 144/69
[2020-06-22 16:49] VITALS: BP 124/62
[2020-06-22 17:55] LABS: SARS-CoV-2 ANTIGEN NEGATIVE- SARS-COV-2 (NEGATIVE)
[2020-06-22 20:02] VITALS: BP 141/81
[2020-06-23 04:33] VITALS: BP 113/65
[2020-06-23 06:46] LABS: BASOPHILS 0.4 % (0-2); EOSINOPHILS 6.7 % (0-7); HEMATOCRIT 44.7 % (42.0-54.0); HEMOGLOBIN 15.3 g/dL (13.5-17.5); IMMATURE GRANULOCYTES 0.1 % (0-5); LYMPHOCYTE ABS# 2.11 10x3/uL (1.32-3.57); LYMPHOCYTES 30.8 % (15-50); MCH 30.8 pg (26.0-34.0); MCHC 34.2 g/dL (31.0-37.0); MCV 89.9 fL (80.0-100.0); MEAN PLATELET VOLUME 11.1 fL (7.4-10.4); MONOCYTES 9.6 % (2-11); NEUTROPHIL ABS# 3.59 10x3/uL (1.78-5.38); NEUTROPHILS 52.4 % (40-80); PLATELET COUNT 123 10x3/uL (130-400); RBC 4.97 10x6/uL (4.20-6.10); RDW 13.1 % (11.5-14.5); WBC 6.9 10x3/uL (4.8-10.8)
[2020-06-23 06:50] LABS: ALBUMIN 3.2 g/dL (3.4-5.0); ALKALINE PHOSPHATASE 89 U/L (30-120); ALT (SGPT) 35 U/L (10-68); BILIRUBIN - TOTAL 0.78 mg/dL (0.2-1.3); CALC OSMOLALITY 276 mosm/kg (275-300); CALCIUM 8.5 mg/dL (8.5-10.1); CHLORIDE - SERUM 105 mmol/L (98-107); CREATININE - SERUM 0.9 mg/dL (0.6-1.3); GLUCOSE 115 mg/dL (74-106); POTASSIUM - SERUM 3.9 mmol/L (3.5-5.1); PROTEIN - SERUM 6.4 g/dL (6.4-8.2); SODIUM 137 mmol/L (136-145); UREA NITROGEN 17 mg/dL (7-18); eGFR NON AFRICAN AMERICAN 85 mL/min (90-120)
[2020-06-23 09:04] VITALS: BP 121/75
--- NOTE | 2020-06-23 09:09 | NUR ---
SAT PT UP IN BED, MEDS GIVEN (CRUSHED), PT TOERALTED WELL, AID IN NOW TO HELP PT EAT
[2020-06-23 12:21] VITALS: BP 131/63
--- NOTE | 2020-06-23 15:26 | NUR ---
pt laying in bed watching tv
--- NOTE | 2020-06-23 15:52 | NUR ---
OT NOTE: PT COMPLETED ROLLING TO L SIDE WITH MIN A. PT REQUIRED MAX A FOR R SIDE ROLLING. PT REQUIRED MAX A FOR LUE POSITIONING. PT EXHIBITED TRACE PLUS MOVEMENT IN L SHOULDER. PT COMPLETED LUE PROM TOLERATED. PT COMPLETED ORAL HYGIENE WITH TOOTHETTE WITH SETUP USING RUE. PT COMPLETED FACE HYGIENE WITH RUE WITH SETUP. [phone] THANK YOU,LASHAY RANDLE
[2020-06-23 16:13] VITALS: BP 163/77
--- NOTE | 2020-06-23 16:16 | NUR ---
REHAB PRESCREENING REHAB CONTINUES TO FOLLOW THIS PATIENT. HE DID AMBULATE 3 FEET TODAY. REHAB WILL ACCEPT THIS PATIENT IF HE IS AGREEABLE TO COME WHEN HIS PHYSICIANS FEEL HE IS APPROPRIATE FOR DISCHARGE. THANK YOU! BRINDA SPAULDING, AIR CHIEF [facility] PD
--- NOTE | 2020-06-23 18:27 | NUR ---
DAUGHTER ASKING WHEN PT WAS GOING TO GO TO REHAB, SCREENING DONE TODAY, WILL TALK TO CM TOMORROW AND CALL DAUGHTER
[2020-06-23 19:51] VITALS: BP 137/73
--- NOTE | 2020-06-24 02:42 | NUR ---
REC'D WALKING ROUNDS CGE. OF SHIFT. IN BED SIDE WAYS PULLED UP AND REPOSITIONED IN BED WAYNE MAT KONRADED TATY, ORIENTED X3.WITH LEFT SIDED WEAKNESS OBSERVED PICKENS PATENT DRAINING DRAINING CLOUDY YELLOW URINESCD'S IN PLACEWILL CONTINUE TO MONITOR FOR AY CHGES. AND FOLLOW CURRENT PLAN OF CARE.
[2020-06-24 04:44] VITALS: BP 121/89
[2020-06-24 05:27] LABS: BASOPHILS 0.4 % (0-2); EOSINOPHILS 5.5 % (0-7); HEMATOCRIT 44.6 % (42.0-54.0); HEMOGLOBIN 15.6 g/dL (13.5-17.5); IMMATURE GRANULOCYTES 0.3 % (0-5); LYMPHOCYTE ABS# 1.55 10x3/uL (1.32-3.57); LYMPHOCYTES 16.7 % (15-50); MCH 31.3 pg (26.0-34.0); MCV 89.4 fL (80.0-100.0); MEAN PLATELET VOLUME 11.2 fL (7.4-10.4); MONOCYTES 8.3 % (2-11); NEUTROPHIL ABS# 6.37 10x3/uL (1.78-5.38); NEUTROPHILS 68.8 % (40-80); PLATELET COUNT 125 10x3/uL (130-400); RBC 4.99 10x6/uL (4.20-6.10); RDW 13.2 % (11.5-14.5)
[2020-06-24 05:28] LABS: ALBUMIN 3.3 g/dL (3.4-5.0); ALKALINE PHOSPHATASE 91 U/L (30-120); ALT (SGPT) 42 U/L (10-68); BILIRUBIN - TOTAL 0.87 mg/dL (0.2-1.3); CALC OSMOLALITY 283 mosm/kg (275-300); CALCIUM 8.9 mg/dL (8.5-10.1); CARBON DIOXIDE 23.6 mmol/L (21.0-32.0); CHLORIDE - SERUM 106 mmol/L (98-107); CREATININE - SERUM 0.9 mg/dL (0.6-1.3); GLUCOSE 111 mg/dL (74-106); POTASSIUM - SERUM 3.9 mmol/L (3.5-5.1); SODIUM 141 mmol/L (136-145); UREA NITROGEN 18 mg/dL (7-18); eGFR NON AFRICAN AMERICAN 85 mL/min (90-120)
[2020-06-24 05:31] LABS: WBC 9.3 10x3/uL (4.8-10.8)
--- NOTE | 2020-06-24 06:45 | NUR ---
I have reviewed this patient and I concur with the Shift Assessment completed by the Licensed Practical Nurse today this shift.
[2020-06-24 09:07] VITALS: BP 147/80
--- NOTE | 2020-06-24 10:03 | MORECARE ---
CASE MANAGEMENT DISCHARGE SUMMARY PATIENT: GLENROY CRESPO UNIT: [id number] ADM DATE: 06/17/20 AGE: 85 : 33 SEX: M ROOM/BED: D.2210 AUTHOR: CHRISTIANA LING PHYSICIAN: REFERRING PHYSICIAN: ANA RUSSELL MD DATE OF SERVICE: 06/24/20 Discharge Plan Patient Name: GLENROY CRESPO [facility] [facility] 1935 Planned Disposition: Inpatient Rehab Anticipated Discharge Date: Discharge Date: Expected LOS: Initial Reviewer: [email or web address] Initial Review Date: 06/17/2020 Generated: 06/24/20 11:02 am DCPIA - Discharge Planning Initial Assessment Updated by [email or web address]: Maggi Salinas on 06/24/20 10:03 am * Is the patient Alert and Oriented? Yes * How many steps to enter\exit or inside your home? 2/RAMP * PCP HANY * Pharmacy [facility] [address] * Preadmission Environment Home Alone * ADLs Independent * Equipment None * List name and contact numbers for known caregivers / representatives who currently or will assist patient after discharge: CHERRI ( DAUGHTER) [phone] * Verbal permission to speak to the caregivers and representatives has been obtained from the patient. Yes * Community resources currently utilized None * Additional services required to return to the preadmission environment? Yes * Can the patient safely return to the preadmission environment? No * Has this patient been hospitalized within the prior 30 days at any hospital? No Patient Name: GLENROY CRESPO Page [phone] at 1003 All edits/amendments must be made on the electronic document DICTATION DATE: 06/24/20 1003 APPLICATION TESTER: JORGE 06/24/20 1003 RPT#: [id number] DC DATE: STATUS: ADM IN [facility] [address] [place] [address] END OF REPORT
--- NOTE | 2020-06-24 10:11 | MORECARE ---
CASE MANAGEMENT DISCHARGE SUMMARY PATIENT: GLENROY CRESPO UNIT: [id number] ADM DATE: 06/17/20 AGE: 85 : 33 SEX: M ROOM/BED: D.2210 AUTHOR: SUSHILDOC PHYSICIAN: REFERRING PHYSICIAN: ANA RUSSELL MD DATE OF SERVICE: 06/24/20 Discharge Plan Patient Name: GLENROY CRESPO Facility: [facility]:[place] : 1935 Planned Disposition: Inpatient Rehab Anticipated Discharge Date: Discharge Date: Expected LOS: Initial Reviewer: [email or web address] Initial Review Date: 06/17/2020 Generated: 06/24/20 11:10 am Comments DCP- Discharge Planning Updated by [email or web address]: Maggi Salinas on 06/24/20 9:[address] Patient Name: GLENROY CRESPO Admission Status: ER Accout number: [id number] Admission Date: 06-17-2020 : 1935 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 CM educated patient on the CM role and verbal consent given by patient to complete assessment. Patient lives at home by himself where he was VERY independent with his care. At discharge patient plans to return home and feels this is a safe discharge. CM discussed availability of home health, rehab services, and medical equipment. He will need rehab prior to going home. I called and spoke with his daughter Tonya and she stated that he wanted to stay at [facility] and do his rehab. DUANE done over the phone with Tonya and IMM also done. I will go and explained to the patient the plan to go to rehab today. He did not need any DME at home. He does have a ramp at his home already. Patient denied known discharge needs at this time. CM will continue to follow and will assist as needed with dc plans/needs Form Setter: Maggi Salinas DCPIA - Discharge Planning Initial Assessment Updated by [email or web address]: Maggi Salinas on 06/24/20 10:03 am * Is the patient Alert and Oriented? Yes * How many steps to enter\exit or inside your home? 2/RAMP * PCP HANY * Pharmacy [facility] [address] * Preadmission Environment Home Alone * ADLs Independent * Equipment None * List name and contact numbers for known caregivers / representatives who currently or will assist patient after discharge: TONYA ( DAUGHTER) [phone] * Verbal permission to speak to the caregivers and representatives has been obtained from the patient. Yes * Community resources currently utilized None * Additional services required to return to the preadmission environment? Yes * Can the patient safely return to the preadmission environment? No * Has this patient been hospitalized within the prior 30 days at any hospital? No Coverage Notice Reviewer: [id number] Betzy Salinas Notice Issued Date-Time: 06/24/2020 10:00 Notice Type: Patient Choice Letter Notice Delivered To: Family Member Relationship to Patient: Daughter Medical Imaging Director Name: tonya Delivery Method: PHONE - Phone Maria Fernanda Days: Prior Verbal Notification: Yes Recipient Understood Notice: Yes Recipient Signature: Med Rec Note Co-signed by Attending: Coverage Notice Comment: inpatient rehab at [facility] Reviewer: [email or web address] Betzy Salinas Notice Issued Date-Time: 06/24/2020 10:00 Notice Type: IM Discharge Notice Notice Delivered To: Family Member Relationship to Patient: Daughter Medical Imaging Director Name: tonya Delivery Method: PHONE - Phone Maria Fernanda Days: Prior Verbal Notification: Recipient Understood Notice: Yes Recipient Signature: Med Rec Note Co-signed by Attending: Coverage Notice Comment: imm over phone with daughter and with patient Last DP export: 06/24/20 9:03 am Patient Name: GLENROY CRESPO Page 93031 at 1011 All edits/amendments must be made on the electronic document DICTATION DATE: 06/24/20 1011 [employer] MEDIC: JORGE 06/24/20 1011 RPT#: [id number] DC DATE: STATUS: ADM IN [facility] [address] [place] [address] END OF REPORT
[2020-06-24] MEDS ORDERED: LIPITOR20 MG PO (10:19)
[2020-06-24] MEDS ORDERED: ASPIRIN EC325 MG PO (10:20)
[2020-06-24] MEDS ORDERED: MUCINEX600 MG PO (10:20)
[2020-06-24] MEDS ORDERED: TESSALON PERLE100 MG PO (10:20)
[2020-06-24] MEDS ORDERED: AZITHROMYCIN500 MG PO (10:21)
[2020-06-24] MEDS ORDERED: OMNICEF300 MG PO (10:21)
[2020-06-24 12:59] VITALS: BP 138/75
--- NOTE | 2020-06-24 16:11 | NUR ---
OT NOTE: PT COMPLETED LUE PROM TOLERATED. PT EXHIBITED INCREASED AROM OF LUE. PT COMPLETED SIT TO STAND WITH MIN A/CGA. PT REQUIRED TOTAL A WITH SELF FEEDING. PT IS ABLE TO HOLD CUP WITH RUE. 105-140 THANK YOU,LASHAY RANDLE
--- NOTE | 2020-06-25 09:17 | MORECARE ---
CASE MANAGEMENT DISCHARGE SUMMARY PATIENT: GLENROY CRESPO UNIT: [id number] ADM DATE: 06/17/20 AGE: 85 : 33 SEX: M ROOM/BED: D.2210 AUTHOR: SUSHIL,DOC PHYSICIAN: REFERRING PHYSICIAN: ANA RUSSELL MD DATE OF SERVICE: 06/25/20 Discharge Plan Patient Name: GLENROY CRESPO Facility: 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 CM educated patient on the CM role and verbal consent given by patient to complete assessment. Patient lives at home by himself where he was VERY independent with his care. At discharge patient plans to return home and feels this is a safe discharge. CM discussed availability of home health, rehab services, and medical equipment. He will need rehab prior to going home. I called and spoke with his daughter Tonya and she stated that he wanted to stay at [facility] and do his rehab. DUANE done over the phone with Tonya and IMM also done. I will go and explained to the patient the plan to go to rehab today. He did not need any DME at home. He does have a ramp at his home already. Patient denied known discharge needs at this time. CM will continue to follow and will assist as needed with dc plans/needs [employer] [id number] Operator: Maggi Salinas DCPIA - Discharge Planning Initial Assessment Updated by [email or web address]: Maggi Salinas on 06/24/20 10:03 am * Is the patient Alert and Oriented? Yes * How many steps to enter\exit or inside your home? 2/RAMP * PCP HANY * Pharmacy [facility] [address] * Preadmission Environment Home Alone * ADLs Independent * Equipment None * List name and contact numbers for known caregivers / representatives who currently or will assist patient after discharge: TONYA ( DAUGHTER) [phone] * Verbal permission to speak to the caregivers and representatives has been obtained from the patient. Yes * Community resources currently utilized None * Additional services required to return to the preadmission environment? Yes * Can the patient safely return to the preadmission environment? No * Has this patient been hospitalized within the prior 30 days at any hospital? No Coverage Notice Reviewer: [id number] Betzy Salinas Notice Issued Date-Time: 06/24/2020 10:00 Notice Type: Patient Choice Letter Notice Delivered To: Family Member Relationship to Patient: Daughter Market Master Name: tonya Delivery Method: PHONE - Phone Maria Fernanda Days: Prior Verbal Notification: Yes Recipient Understood Notice: Yes Recipient Signature: Med Rec Note Co-signed by Attending: Coverage Notice Comment: inpatient rehab at [facility] Reviewer: [id number] Betzy Salinas Notice Issued Date-Time: 06/24/2020 10:00 Notice Type: IM Discharge Notice Notice Delivered To: Family Member Relationship to Patient: Daughter Market Master Name: tonya Delivery Method: PHONE - Phone Maria Fernanda Days: Prior Verbal Notification: Recipient Understood Notice: Yes Recipient Signature: Med Rec Note Co-signed by Attending: Coverage Notice Comment: imm over phone with daughter and with patient Last DP export: 06/24/20 9:11 am Patient Name: GLENROY CRESPO Page 24899 at 0917 All edits/amendments must be made on the electronic document DICTATION DATE: 06/25/20916 ADMINISTRATION INTERNSHIP: JORGE 06/25/20916 RPT#: [id number] DC DATE:06/24/20 STATUS: DIS IN [facility] [address] [place] [address] END OF REPORT
== END 2020-06-24 17:16 | DRG 64 ==
LOC: D.ER 10:29 → D.MS 13:54 → D.EDHOLD 13:54 → D.MS 15:00
PROVIDERS: Emergency Medicine; Family Medicine; ADMIT Family Medicine; ATTEND Family Medicine
DX: I63.411 Cerebral infarction due to embolism of right middle cerebral artery (principal); J18.9 Pneumonia, unspecified organism; G81.94 Hemiplegia, unspecified affecting left nondominant side; J98.11 Atelectasis; R13.10 Dysphagia, unspecified; H53.462 Homonymous bilateral field defects, left side; I10 Essential (primary) hypertension; Z86.16 Personal history of COVID-19; K21.9 Gastro-esophageal reflux disease without esophagitis; F32.9 Major depressive disorder, single episode, unspecified; G89.29 Other chronic pain; M54.9 Dorsalgia, unspecified; M19.90 Unspecified osteoarthritis, unspecified site

== ENCOUNTER 2020-06-24 18:00 | Inpatient (IN) | payer MEDICARE ==
[~2020-06-24] VITALS: Ht 172.7 cm; Wt 81.6 kg
[~2020-06-24 18:00] MED LIST changes: +ASPIRIN EC325 MG PO; +AZITHROMYCIN500 MG PO; +LIPITOR20 MG PO; +MUCINEX600 MG PO; +OMNICEF300 MG PO; +TESSALON PERLE100 MG PO
[2020-06-24 18:11] VITALS: BP 134/71; BMI 27.4
--- NOTE | 2020-06-24 18:36 | NUR ---
ADMIT TO REHAB FROM ACUTE CARE. HAD RECENT CVA. LUE FLACCID. LLE WEAKER THAN RT SIDE BUT HE HAS MOVEMENT AND SENSATION TO LLE. 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 LIVES WITH DTR.
--- NOTE | 2020-06-24 18:40 | NUR ---
RECEIVED PT SITTING UP IN BED AWAKE. ALERT AND ORIENTED X4. DENIES ANY NEEDS OR PAIN. RIGHT HAND SL WITHOUT REDNESS OR SWELLING. DRESSING AND SWAB CAP INTACT. PICKENS CATH PATENT FREE FROM KINKS. NO URINE IN COLLECTION BAG NOTED. PT ON ROOM AIR. VS STABLE. HEELS BRIDGED. NO DISTRESS NOTED. CALL LIGHT WITHIN REACH. FALL PRECAUTIONS IN PLACE. CPOC
[2020-06-24 20:15] VITALS: BP 134/71
--- NOTE | 2020-06-25 02:48 | NUR ---
PT LYING IN BED ON LEFT SIDE EYES CLOSED RESTING. RR EVEN AND UNLABORED. CALL LIGHT WITHIN REACH. FALL PRECAUTIONS IN PLACE. CPOC
[2020-06-25 03:45] LABS: BILIRUBIN NEGATIVE (NEGATIVE); KETONE NEGATIVE (NEGATIVE); NITRITE NEGATIVE (NEGATIVE); UROBILINOGEN NORMAL mg/dL (< 2)
[2020-06-25 03:47] LABS: BACTERIA FEW HPF (NONE SEEN); SQUAMOUS EPITHELIAL 0-5 HPF (0-4); WHITE CELLS - URINE 0-5 HPF (0-1)
--- NOTE | 2020-06-25 06:44 | NUR ---
PT LYING IN BED ON LEFT SIDE EYES CLOSED RESTING. REPOSITIONED PT TO SUPINE. NO DISTRESS NOTED. CALL LIGHT WITHIN REACH. CPOC
[2020-06-25 07:39] LABS: BASOPHILS 0.6 % (0-2); EOSINOPHILS 8.4 % (0-7); HEMATOCRIT 43.9 % (42.0-54.0); HEMOGLOBIN 15.3 g/dL (13.5-17.5); IMMATURE GRANULOCYTES 0.2 % (0-5); LYMPHOCYTE ABS# 1.07 10x3/uL (1.32-3.57); LYMPHOCYTES 17.3 % (15-50); MCHC 34.9 g/dL (31.0-37.0); MEAN PLATELET VOLUME 10.6 fL (7.4-10.4); MONOCYTES 8.8 % (2-11); NEUTROPHIL ABS# 3.99 10x3/uL (1.78-5.38); NEUTROPHILS 64.7 % (40-80); PLATELET COUNT 141 10x3/uL (130-400); RBC 4.93 10x6/uL (4.20-6.10); RDW 13.1 % (11.5-14.5)
[2020-06-25 07:49] VITALS: BP 127/60
[2020-06-25 07:51] LABS: CALC OSMOLALITY 283 mosm/kg (275-300); CALCIUM 8.9 mg/dL (8.5-10.1); CARBON DIOXIDE 26.3 mmol/L (21.0-32.0); CHLORIDE - SERUM 108 mmol/L (98-107); GLUCOSE 117 mg/dL (74-106); POTASSIUM - SERUM 3.7 mmol/L (3.5-5.1); SODIUM 141 mmol/L (136-145); UREA NITROGEN 17 mg/dL (7-18); eGFR NON AFRICAN AMERICAN 75 mL/min (90-120)
[2020-06-25 07:57] LABS: WBC 6.2 10x3/uL (4.8-10.8)
--- NOTE | 2020-06-25 08:00 | NUR ---
SHIFT ASSMT COMPLETED.CL IN REACH.PREPARED FOR MEAL SET-UP AND FEEDING PT.
--- NOTE | 2020-06-25 12:00 | NUR ---
SITTING UP IN WC FEEDING PT MEAL.
--- NOTE | 2020-06-25 13:00 | NUR ---
SPEECH THERAPY EAVLUATING.
[2020-06-25 13:09] VITALS: Ht 172.7 cm; Wt 81.6 kg
--- NOTE | 2020-06-25 13:26 | NUR ---
CARE TEAM MEETING: PATIENT IS NEW TO UNIT AND WILL BE RA AT NEXT MEETING. HAVE WELCOMED PATIENT TO UNIT. WILL CONTINUE TO FOLLOW WITH PATIENT.
--- NOTE | 2020-06-25 15:42 | NUR ---
PATIENT ADMITTS TO REHAB FROM ACUTE FLOOR. HIS PCP IS DR. GARCIA. DC PLANS ARE FOR PATIENT TO REURN TO HIS HOME. AT THIS TIME HE HAS NO DME. WILL ASSESS TO WHAT IS NEEDED PRIOR TO DISHCARGE. WILL CONTINUE TO FOLLOW WITH PATIENT.
--- NOTE | 2020-06-25 19:38 | NUR ---
AWAKE AND ALERT. RESTING IN BED WITH RESPIRATIONS UNLABORED. NO ACUTE DISTRESS NOTED. CALL LIGHT IN REACH.
[2020-06-25 20:35] VITALS: BP 115/72
--- NOTE | 2020-06-26 01:29 | NUR ---
RESTING IN BED WITH RESPIRATIONS UNLABORED. NO DISTRESS NOTED.
--- NOTE | 2020-06-26 05:23 | NUR ---
QUIET HOURS. NO ACUTE CHANGES IN CONDITION THIS SHIFT. NELIA WADE. INSTRUCTED TO NOTIFY NURSE WHEN HE VOIDS OR IF HE DOESNT VOID IN 4 HOURS.
[2020-06-26 08:00] VITALS: BP 110/80
--- NOTE | 2020-06-26 08:00 | NUR ---
SHIFT ASSMT COMPLETED.
--- NOTE | 2020-06-26 12:00 | NUR ---
EATING LUNCH WITH MEAL ASSIST,
--- NOTE | 2020-06-26 16:00 | NUR ---
RESTING ON SIDE.
--- NOTE | 2020-06-26 18:53 | NUR ---
AWAKE AND ALERT. ASSISTED TO BATHROOM AND VOIDED WITHOUT DIFFICULTY. ASSISTED BACK TO BED. LEFT ARM FLACCID. ALL OTHER EXTREMITIES WEAK BUT TRANSFERS WELL WITH ONE PERSON ASSIST. NO ACUTE DISTRESS NOTED. CALL LIGHT IN REACH.
[2020-06-26 20:00] VITALS: BP 138/68
--- NOTE | 2020-06-27 01:39 | NUR ---
SLEEPING WITH RESPIRATIONS UNLABORED. NO DISTRESS NOTED.
--- NOTE | 2020-06-27 05:03 | NUR ---
QUIET HOURS. NO ACUTE CHANGES IN CONDITION THIS SHIFT. RESTING IN BED WITH NO DISTRESS NOTED.
[2020-06-27 07:11] LABS: BASOPHILS 0.6 % (0-2); EOSINOPHILS 8.5 % (0-7); HEMATOCRIT 44.1 % (42.0-54.0); HEMOGLOBIN 15.2 g/dL (13.5-17.5); IMMATURE GRANULOCYTES 0.2 % (0-5); LYMPHOCYTE ABS# 1.66 10x3/uL (1.32-3.57); LYMPHOCYTES 26.1 % (15-50); MCH 30.5 pg (26.0-34.0); MCHC 34.5 g/dL (31.0-37.0); MCV 88.6 fL (80.0-100.0); MEAN PLATELET VOLUME 10.6 fL (7.4-10.4); MONOCYTES 10.5 % (2-11); NEUTROPHIL ABS# 3.45 10x3/uL (1.78-5.38); NEUTROPHILS 54.1 % (40-80); PLATELET COUNT 151 10x3/uL (130-400); RBC 4.98 10x6/uL (4.20-6.10); RDW 13.2 % (11.5-14.5); WBC 6.4 10x3/uL (4.8-10.8)
[2020-06-27 07:20] VITALS: BP 115/70
[2020-06-27 07:28] LABS: CALC OSMOLALITY 283 mosm/kg (275-300); CALCIUM 8.9 mg/dL (8.5-10.1); CARBON DIOXIDE 26.7 mmol/L (21.0-32.0); CHLORIDE - SERUM 106 mmol/L (98-107); GLUCOSE 120 mg/dL (74-106); POTASSIUM - SERUM 3.7 mmol/L (3.5-5.1); SODIUM 140 mmol/L (136-145); eGFR NON AFRICAN AMERICAN 75 mL/min (90-120)
[2020-06-27 07:31] LABS: UREA NITROGEN 25 mg/dL (7-18)
--- NOTE | 2020-06-27 13:13 | NUR ---
Nutrition Follow-up Diet: Regular [facility] Soft Diet Delia Thick Liquid + Ensure TID PO intake: ~48% average last 6 meals; He ate ~60% of his lunch tray. OT states that he is getting stronger every day. He states that he has been drinking Ensure. Last BM: 06/25/20. Wt: 180# (06/25/20) Meds noted: probiotics, abx Labs noted: Glu 120(H) Recommend continue current PO diet (or per DOBBY LOOM WEAVER recommendations). Continue Ensure TID. RD will follow-up within 7 days.
--- NOTE | 2020-06-27 18:18 | NUR ---
FAMILY BROUGHT HIM SUPPER AND HE ATE VERY GOOD. NO PROBLEMS WITH CHEWING OR SWALLOWING. FED HIMSELF WITH RUE. SITTING UP IN BED WATCHING BALL GAME. CALL LIGHT IN REACH
--- NOTE | 2020-06-27 18:42 | NUR ---
BEDSIDE REPORT COMPLETE. RECEIVED PT SITTING UP IN BED AWAKE. ALERT AND ORIENTED X4. DENIES ANY NEEDS OR PAIN. NO DISTRESS NOTED. RIGHT HAND IV WITHOUT S/S OF INFECTION. DRESSING AND SWAB CAP INTACT. CALL LIGHT AND WATER WITHIN REACH. FALL PRECAUTIONS IN PLACE. CPOC
--- NOTE | 2020-06-27 18:44 | NUR ---
BEDSIDE REPORT COMPLETE. RECEIVED PT SITTING UP IN BED AWAKE. ALERT AND ORIENTED X4. DENIES ANY NEEDS OR PAIN. RIGHT FOREARM IV INFUSING VANC 125ML/HR, NO SIGNS OF INFILTRATION NOTED. DRESSING INTACT. RIGHT FOOT DRESSING CLEAN, DRY, AND INTACT DATED 06/26/20. CALL LIGHT AND WATER WITHIN REACH. FALL PRECAUTIONS IN PLACE. CPOC
[2020-06-27 20:56] VITALS: BP 109/72
--- NOTE | 2020-06-27 21:14 | NUR ---
PT LYING IN BED SUPINE AWAKE. HOB ELEVATED. HS MEDS GIVEN WITHOUT DIFFICULTY. DENIES ANY PAIN. REPOSITIONED TO HEAD OF BED PLACED ON RIGHT SIDE USING PILLOWS FOR SUPPORT. DENTURES PLACED IN CUP FOR CLEANING. CALL LIGHT WITHIN REACH. FALL PRECAUTIONS IN PLACE. CPOC
--- NOTE | 2020-06-27 23:00 | NUR ---
PT CALLED NEEDING ASSISTANCE WITH URINAL, PT UNABLE TO URINATE. BLADDER DISTENDED. WILL BLADDER SCAN
--- NOTE | 2020-06-27 23:15 | NUR ---
BLADDER SCAN REVEALED 689ML RETAINED IN BLADDER. PT UNABLE TO URINATE. BLADDER DISTENDED. TENDER UPON PALPATION.
--- NOTE | 2020-06-27 23:30 | NUR ---
VERBAL CONSENT OBTAINED FROM PT TO PERFORM IN & OUT CATH. PT DENIES ANY CONCERNS. POSITIONED PT IN SUPINE POSITION. PT PREPPED FOR PROCEDURE. IN AND OUT CATH PERFORMED USING STERILE TECHNIQUE. 600ML CLEAR CUCO URINE EMPTIED FROM BLADDER. PT REPORTS PRESSURE RELIEVED. BLADDER NO LONGER DISTENDED. PT DENIES TENDERNESS WITH PALPATION. PERICARE PROVIDED. REPOSITIONED PT ON LEFT SIDE USING PILLOWS FOR SUPPORT AND COMFORT. PT WAS INFORMED TO CALL NURSING WHEN URGE TO URINATE. PT VERBALIZED UNDERSTANDING. CALL LIGHT AND WATER WITHIN REACH. FALL PRECAUTIONS IN PLACE. CPOC
--- NOTE | 2020-06-28 00:11 | NUR ---
PT LYING IN BED ON RIGHT SIDE EYES CLOSED RESTING. RR EVEN AND UNLABORED. CALL LIGHT WITHIN REACH. WAYNE ALARM ON. CPOC
--- NOTE | 2020-06-28 02:08 | NUR ---
PT LYING IN BED ON RIGHT SIDE EYES CLOSED RESTING. REPOSITIONED PT TO LEFT SIDE USING PILLOW FOR SUPPORT AND COMFORT. NO BLADDER DISTENTION NOTED. PT DENIES NEED TO VOID. CALL LIGHT WITHIN REACH. WAYNE ALARM ON. CPOC
--- NOTE | 2020-06-28 04:05 | NUR ---
PT CALLED NEEDING ASSISTANCE WITH URINAL. ASSISTED PT WITH URINAL PT UNABLE TO URINATE. BLADDER DISTENDED. PT C/O TENDERNESS WITH PALPATION. BLADDER SCANNED PT SCAN REVEALS 586ML IN BLADDER.
--- NOTE | 2020-06-28 04:35 | NUR ---
INFORMED PT PICKENS CATH INSERTION AND EXPECTATION. VERBAL CONSENT OBTAINED. PREPPED PERIAREA FOR INSERTION. PLACED 16FR PICKENS CATH USING STERILE TECHNIQUE. INFLATED BALLOON WITH 10ML STERILE WATER. STAT LOCK PLACED ON LEFT THIGH. 600ML CLEAR CUCO URINE IMMEDIATE AFTER INSERTION. PT REPORTS RELIEF NO C/O DISCOMFORT OR TENDERNESS. PT TOLERATED WELL. POSITIONED TO HOB AND RIGHT SIDE. PT REFUSED SHOWER ADVISED PT IF FEELING BETTER TONIGHT THIS NURSE WOULD ASSIST WITH SHOWER. PT VERBALIZED UNDERSTANDING. CALL LIGHT AND WATER WITHIN REACH. FALL PRECAUTIONS IN PLACE. CPOC
[2020-06-28 08:00] VITALS: BP 135/68
--- NOTE | 2020-06-28 09:55 | NUR ---
LAYING DOWN IN BED. SAT UP IN BED FOR BREAKFAST. FEEDS SELF WITH RUE. DENIES HAVING DIFFICULTY SWALLOWING. STILL ON THICKENED LIQUIDS. CALL LIGHT IN HAND.
--- NOTE | 2020-06-28 18:44 | NUR ---
BEDSIDE REPORT COMPLETE. RECEIVED PT SITTING UP IN RECLINER AWAKE. ALERT AND ORIENTED X4. PICKENS CATH PATENT, FREE FROM KINKS, 375ML CUCO URINE EMPTIED. STAT LOCK TO LEFT INNER THIGH INTACT. NO IV OR O2. NO DISTRESS NOTED. DENIES ANY NEEDS OR PAIN. CALL LIGHT AND NECTAR THICKENED APPLE JUICE WITHIN REACH. FALL PRECAUTIONS IN PLACE. CPOC
[2020-06-28 20:36] VITALS: BP 123/58
--- NOTE | 2020-06-28 22:54 | NUR ---
PT LYING IN BED ON LEFT SIDE EYES CLOSED RESTING. RR EVEN AND UNLABORED. CALL LIGHT WITHIN REACH. CPOC
--- NOTE | 2020-06-29 03:27 | NUR ---
PT LYING IN BED SUPINE EYES CLOSED RESTING. REPOSITIONED TO LEFT SIDE. DENIES ANY NEEDS. NO DISTRESS NOTED. CALL LIGHT WITHIN REACH
[2020-06-29 08:21] VITALS: BP 150/72
--- NOTE | 2020-06-29 10:30 | NUR ---
RESTING QUIETLY IN RECLINER CHAIR. HAS BEEN UP THIS MORNING EATING BREAKFAST, SAT ON TOILET, AND TRANSFERED BACK TO CHAIR. LUE FLACCID, F/C PATENT WITH CLOUDY URINE. ENCOURGED FLUIDS THIS MORNING. DONE I.S. WITH PT. CALL LIGHT IN REACH
--- NOTE | 2020-06-29 12:07 | NUR ---
SITTING UP IN RECLINER VISITING WITH DTR WHO IS VISITING. HE DENIES NEEDS OR C/O. FEEDING HIMSELF WITH RUE. TAPAN ELEVATED ON PILLOW. CALL LIGHT IN REACH
--- NOTE | 2020-06-29 18:44 | NUR ---
BEDSIDE REPORT COMPLETE. RECEIVED PT UP IN W/C COMING FROM RESTROOM. PT WAS ABLE TO HAVE SUCCESSFUL XLARGE BM PER CARLENE FRASER. PT REPORTS FEELING EMPTIED AND NOT HAVING THE "SENSATION OF BEING FULL". LUE FLACCID. LLE WEAKER THAN RIGHT ABLE TO AMBULATE WITH 1 PERSON ASSIST. STEADY TRANSFER FROM W/C TO BED WITH MIN ASSIST. PT IS ABLE TO LIFT BLE INTO BED WITHOUT ASSIST. PICKENS CATH PATENT AND FREE FROM KINKS. COLLECTION BAG EMPTIED BY CARLENE FRASER. 700ML CUCO URINE. WITNESSED BY THIS NURSE. PICKENS CATH CARE COMPLETED. NO PENIAL REDNESS OR SWELLING NOTED. NO SKIN BREAKDOWN ON COCCYX/BUTTOCKS. PT POSITIONED ON LEFT SIDE USING PILLOWS FOR SUPPORT BEHIND BACK AND BETWEEN KNEES. PT DENIES ANY PAIN OR NEEDS. CALL LIGHT AND NECTAR THICKENED WATER WITHIN REACH. FALL PRECAUTIONS IN PLACE. CPOC
[2020-06-29 20:45] VITALS: BP 120/58
--- NOTE | 2020-06-29 20:47 | NUR ---
ORAL HYGIENE PROVIDED. UPPER DENTURES CLEANED. LOWER DENTURES SOAKING. PT REFUSED SHOWER, PT STATES HE IS TIRED AND HAS BEEN UP ALL DAY. DENIES ANY OTHER NEEDS. C/O BACK DISCOMFORT, REPOSITIONED IN BED TO RELIEF STRAIN ON LOWER BACK. PT REPORTS RELIEF AND BEING MORE COMFORTABLE. CALL LIGHT WITHIN REACH. FALL PRECAUTIONS IN PLACE. CPOC
--- NOTE | 2020-06-30 00:12 | NUR ---
PT LYING IN BED ON RIGHT SIDE EYES CLOSED RESTING. REPOSITIONED TO LEFT SIDE. DENIES ANY NEEDS. NO DISTRESS NOTED. CALL LIGHT WITHIN REACH
--- NOTE | 2020-06-30 02:47 | NUR ---
PT LYING IN BED ON LEFT SIDE EYES CLOSED RESTING. RR EVEN AND UNLABORED. CALL LIGHT WITHIN REACH.
--- NOTE | 2020-06-30 04:32 | NUR ---
PT LYING IN BED ON LEFT SIDE EYES CLOSED RESTING. REPOSITIONED TO RIGHT SIDE. DENIES ANY NEEDS. NO DISTRESS NOTED. CALL LIGHT WITHIN REACH
--- NOTE | 2020-06-30 07:51 | NUR ---
MAX ASST TO TRANSFER TO RECLINER FROM BED THIS MORNING. LUE FLACCID LLE WEAK. IS HOWARD X4. SPEECH MORE CLEAR. F/C PATENT. CALL LIGHT IN REACH
[2020-06-30 08:00] VITALS: BP 132/74
[2020-06-30 08:12] LABS: BASOPHILS 0.8 % (0-2); EOSINOPHILS 9.5 % (0-7); HEMATOCRIT 43.9 % (42.0-54.0); HEMOGLOBIN 15.3 g/dL (13.5-17.5); IMMATURE GRANULOCYTES 0.2 % (0-5); LYMPHOCYTE ABS# 1.64 10x3/uL (1.32-3.57); LYMPHOCYTES 25.9 % (15-50); MCHC 34.9 g/dL (31.0-37.0); MEAN PLATELET VOLUME 10.5 fL (7.4-10.4); MONOCYTES 10.6 % (2-11); NEUTROPHIL ABS# 3.37 10x3/uL (1.78-5.38); PLATELET COUNT 177 10x3/uL (130-400); RBC 4.93 10x6/uL (4.20-6.10); RDW 13.1 % (11.5-14.5); WBC 6.3 10x3/uL (4.8-10.8)
[2020-06-30 08:18] LABS: CALC OSMOLALITY 281 mosm/kg (275-300); CALCIUM 9.1 mg/dL (8.5-10.1); CARBON DIOXIDE 28.3 mmol/L (21.0-32.0); CHLORIDE - SERUM 106 mmol/L (98-107); GLUCOSE 109 mg/dL (74-106); POTASSIUM - SERUM 3.8 mmol/L (3.5-5.1); SODIUM 140 mmol/L (136-145); UREA NITROGEN 17 mg/dL (7-18); eGFR NON AFRICAN AMERICAN 75 mL/min (90-120)
--- NOTE | 2020-06-30 09:24 | RHP ---
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 HISTORY OF PRESENT ILLNESS: The patient admitted secondary to acute/subacute right middle cerebral artery territory infarct involving the right frontal and parietal lobes. An 85-year-old gentleman who presented via dysphagia and progressively worsening of his left-sided weakness. He had been to the Emergency Department and had a CVA 4 days prior to this, was transferred to [facility], was admitted for day 2 days and then discharged. Family states he has been progressively working. He was not able to swallow without choking and was unable to walk. The patient appeared oriented, answers questions appropriately, but did not think he was discharged home on any aspirin or statin therapy. Got a history of CVA in the past. He was noted to have a left homonymous hemianopsia, left hemiparesis, community-acquired pneumonia, left basilar subsegmental atelectasis. He is requiring assistance with all of his meals. He is on mechanical soft diet with nectar-thick liquids, being followed by neurology. He will require intensive speech, physical and occupational therapy to hopefully get him back to his prior level of functioning or close to this. He is going to be monitored closely for lab values, cognition, decreased activity tolerance, decreased strength, left hemiparesis with proximal muscle weakness, balance deficit, decreased range of motion, gait disturbance, impaired mobility, dyspnea on exertion. He is a high fall risk, self-care deficits and aphasia. These are all barriers to his discharge home. COMORBIDITIES: Include aphasia, dysphagia, left hemiparesis, depression, history of prostate cancer. PAST MEDICAL HISTORY: Significant for CVA, cataracts, he has got a history of COVID, known coronary artery disease, arthritis, chronic back pain, depression, skin cancers, prostate problems. PAST SURGICAL HISTORY: Includes cataract surgery, gallbladder surgery. ALLERGIES: EDGAR INHIBITORS AND MORPHINE. CURRENT MEDICATIONS: Include Floranex one cap daily, Calmoseptine to apply b.i.d., he is on aspirin 325 daily, vitamin D 1000 units daily, Zithromax 500 mg daily, atorvastatin 20 mg daily, Protonix 40 mg daily, Mucinex 1200 mg b.i.d., Omnicef 300 mg b.i.d., Tessalon Perles 100 mg t.i.d. and MiraLax 17 grams in 8 ounces of water. HABITS: No alcohol or tobacco use. FAMILY HISTORY: Noncontributory. SOCIAL HISTORY: The patient hopes to return back home and get back to his prior level of functioning. REVIEW OF SYSTEMS: HISTORY AND PHYSICAL [id number] GLENROY CRESPO GENERAL: He does complain of some weakness and fatigue. HEENT: Denies cold, cough or congestion. CARDIOVASCULAR: Denies any chest pain. PHYSICAL EXAMINATION: VITAL SIGNS: Stable, afebrile. GENERAL: An elderly gentleman in no acute distress upon exam. HEENT: Normocephalic and atraumatic. Mucosa moist. NECK: Supple. No lymphadenopathy. LUNGS: Clear in the upper sarah. No wheezing or rales. HEART: Regular rate and rhythm. No murmurs, rubs or gallops. ABDOMEN: Soft, benign, nondistended. Positive bowel sounds times 4. EXTREMITIES: No clubbing, cyanosis or edema. NEUROLOGIC: He does have marked left-sided weakness consistent with a right-sided infarct. LABORATORY DATA: His white count is 6.2, H&H of 15 and 43 and platelet count is 141. Sodium is 141, potassium 3.7, BUN and creatinine of 17 and 1.0 and blood sugar is noted to be 117. His UA is essentially negative. ASSESSMENT: An 85-year-old gentleman admitted to the rehab with a working diagnosis of right middle cerebral artery infarct involving the parietal and temporal lobes. The patient has potential to make improvement. We instituted the following multidisciplinary therapies including, not limited to physical, occupational, respiratory, speech, nutritional services, prosthetics and orthotics. Given his complex medical condition and risks for more complications rehabilitation services cannot be provided at a low level of care such as fpc facility. PLAN: 1. Admit to [facility] for inpatient therapy to include the following disciplines; A. Physical therapy to improve gait, all transfer skills and bed mobility to a modified independent level. B. Occupational therapy to improve activities of daily living. C. Case management help with discharge planning and placement options. D. Nutrition to assist in nutritional needs. E. Rehabilitation nursing to assist in monitoring the patient's underlying medical conditions and to assist with any type of bowel and bladder management. 2. The patient's current medication and medical care will be continued. 3. Placed on standard fall precautions. 4. The patient's estimated length of stay is approximately 7-10 days. 5. I will discuss this patient during care team staff meeting this week. We will continue on appropriate medications including a 325 aspirin. I will discuss this case today with care team and I will see again in the a.m. TRANSINT:[id number] Voice Confirmation ID: [id number] DOCUMENT ID: [id number] 06/27/2020 Edited francisco DAO. SYLWIA notes whether there has been none or any medical/functional change since admission: - No change since preadmission screen. HISTORY AND PHYSICAL [id number] GLENROY CRESPO attests patient continues to be appropriate for IRF: - Continues to be appropriate. GALI POLLARD MD at 0924 CC: [id number] DICTATION DATE: 06/25/20 0856 COLLECTOR OF AQUARIUM SPECIMENS: 06/25/20 1248 ADM IN [facility] [address] [place] [address]
--- NOTE | 2020-06-30 19:08 | NUR ---
RECIEVED PT LYING IN BED RESTING QUIETLY. BEDSIDE SHIFT REPORT COMPLETED. NO DISTRESS NOTED. EYES CLOSED AT THIS TIME. RESP EVEN AND UNLABORED. A/O X4. PT LYING ON LEFT SIDE. LEFT ARM FLACCID AND LEFT LEG WEAK. CPOC
[2020-06-30 20:20] VITALS: BP 121/57
[2020-07-01 08:00] VITALS: BP 127/58
--- NOTE | 2020-07-01 08:00 | NUR ---
SHIFT ASSMT COMPLETED.CL IN REACH.
--- NOTE | 2020-07-01 12:00 | NUR ---
SITTING UP EATING LUNCH.SET-UP PROVIDED.
--- NOTE | 2020-07-01 19:08 | NUR ---
RECIEVED PT LYING IN BED RESTING QUIETLY. CL IN REACH. NO DISTRESS NOTED. EYES CLOSED. WAKES TO VERBAL STIMULI. BEDSIDE SHIFT REPORT COMPLETED. RESP EVEN AND UNLABORED. A/O X4. CPOC
[2020-07-01 20:34] VITALS: BP 129/58
--- NOTE | 2020-07-02 04:52 | NUR ---
I have reviewed this patient and I concur with the Shift Assessment completed by the Licensed Practical Nurse today this shift.
[2020-07-02 06:22] LABS: BASOPHILS 0.9 % (0-2); EOSINOPHILS 8.1 % (0-7); HEMATOCRIT 43.3 % (42.0-54.0); HEMOGLOBIN 14.9 g/dL (13.5-17.5); IMMATURE GRANULOCYTES 0.2 % (0-5); LYMPHOCYTE ABS# 1.38 10x3/uL (1.32-3.57); LYMPHOCYTES 24.7 % (15-50); MCHC 34.4 g/dL (31.0-37.0); MEAN PLATELET VOLUME 10.4 fL (7.4-10.4); NEUTROPHIL ABS# 3.14 10x3/uL (1.78-5.38); NEUTROPHILS 56.1 % (40-80); PLATELET COUNT 155 10x3/uL (130-400); RBC 4.81 10x6/uL (4.20-6.10); RDW 13.2 % (11.5-14.5); WBC 5.6 10x3/uL (4.8-10.8)
[2020-07-02 06:59] LABS: CALC OSMOLALITY 281 mosm/kg (275-300); CALCIUM 8.9 mg/dL (8.5-10.1); CARBON DIOXIDE 27.8 mmol/L (21.0-32.0); CHLORIDE - SERUM 105 mmol/L (98-107); GLUCOSE 115 mg/dL (74-106); POTASSIUM - SERUM 3.8 mmol/L (3.5-5.1); SODIUM 140 mmol/L (136-145); UREA NITROGEN 17 mg/dL (7-18); eGFR NON AFRICAN AMERICAN 75 mL/min (90-120)
[2020-07-02 08:00] VITALS: BP 137/69
--- NOTE | 2020-07-02 08:00 | NUR ---
SHIFT ASSMT COMPLETED.DENIES NEEDS.BREAKFAST GIVEN.CL IN REACH.
--- NOTE | 2020-07-02 12:00 | NUR ---
SITTING UP EATING LUNCH.CL IN REACH.
--- NOTE | 2020-07-02 13:57 | NUR ---
CARE TEAM MEETING: PATIENT IS DOING WELL IN THERAPY. HIS TENATIVE DC DATE IS 07/11/20. WILL CONTINUE TO FOLLOW WITH PATIENT AND WILL ASSIST WITH DC NEEDS.
--- NOTE | 2020-07-02 16:00 | NUR ---
SITTING UP IN CHAIR
--- NOTE | 2020-07-02 18:43 | NUR ---
BEDSIDE REPORT COMPLETE. RECEIVED PT LYING IN BED AWAKE. ALERT AND ORIENTED X4. DENIES ANY NEEDS OR PAIN. PICKENS CATH PATENT, FREE FROM KINKS. STAT LOCK ADHERED TO LEFT THIGH. PICKENS COLLECTION BAG EMPTY. NO IV OR OXYGEN NOTED. CALL LIGHT AND WATER WITHIN REACH. FALL PRECAUTIONS IN PLACE. CPOC
[2020-07-02 20:36] VITALS: BP 138/75
--- NOTE | 2020-07-02 23:46 | NUR ---
PT LYING IN BED EYES CLOSED RESTING. REPOSITIONED PT TO RIGHT SIDE. DENIES ANY PAIN OR NEEDS. NO DISTRESS NOTED. CALL LIGHT WITHIN REACH
--- NOTE | 2020-07-03 03:14 | NUR ---
PT LYING IN BED ON SUPINE RESTING. REPOSITIONED PT TO LEFT SIDE. DENIES ANY NEEDS. NO DISTRESS NOTED. CALL LIGHT WITHIN REACH. WAYNE ALARM ON.
--- NOTE | 2020-07-03 05:20 | NUR ---
PT LYING IN BED AWAKE. NO DISTRESS NOTED. DENIES ANY PAIN OR NEEDS. REPOSITIONED TO LEFT SIDE. 600ML CUCO URINE EMPTIED FROM PICKENS. CALL LIGHT WITHIN REACH. FALL PRECAUTIONS IN PLACE. CPOC
[2020-07-03 08:00] VITALS: BP 131/72
--- NOTE | 2020-07-03 10:03 | NUR ---
SITTING UP IN BED RESTING QUIETLY WITH EYES CLOSED. NO S/S DISTRESS. F/C PATENT WITH CLOUDY URINE NOTED. LUE FLACCID. CALL LIGHT IN RT HAND
--- NOTE | 2020-07-03 13:15 | NUR ---
SITTING UP IN WC IN ROOM WATCHING TV. DENIES NEEDS OR C/O. DENIES WANTING TO GET IN BED OR RECLINER AT PRESENT. CALL LIGHT IN REACH
--- NOTE | 2020-07-03 18:57 | NUR ---
BEDSIDE REPORT COMPLETE. RECEIVED PT LYING IN BED AWAKE. ALERT AND ORIENTED X4. DENIES ANY PAIN. PICKENS CATH PATENT FREE FROM KINKS. CUCO COLOR URINE NOTED IN COLLECTION BAG. REPOSITIONED TO RIGHT SIDE USING PILLOWS FOR SUPPORT. NO NEEDS VOICED. NO OXYGEN OR IV NOTED. CALL LIGHT AND NECTAR THICKENED WATER WITHIN REACH. FALL PRECAUTIONS IN PLACE. CPOC
[2020-07-03 19:58] VITALS: BP 146/74
--- NOTE | 2020-07-04 00:16 | NUR ---
PT LYING IN BED ON LEFT SIDE EYES CLOSED RESTING. REPOSITIONED TO RIGHT SIDE. DENIES ANY NEEDS. NO DISTRESS NOTED. CALL LIGHT WITHIN REACH
--- NOTE | 2020-07-04 03:04 | NUR ---
PT LYING IN BED SUPINE EYES CLOSED RESTING. REPOSTIONED TO LEFT SIDE. DENIES ANY NEEDS. NO DISTRESS NOTED. CALL LIGHT WITHIN REACH
--- NOTE | 2020-07-04 06:13 | NUR ---
PT SITTING UP IN BED AWAKE. DENIES ANY NEEDS OR PAIN. NO ACUTE CHANGES IN CONDITION THIS SHIFT. 600ML CUCO URINE EMPTIED FROM PICKENS. CALL LIGHT AND WATER WITHIN REACH. FALL PRECAUTIONS IN PLACE
[2020-07-04 06:58] LABS: BASOPHILS 0.4 % (0-2); EOSINOPHILS 7.6 % (0-7); HEMATOCRIT 42.9 % (42.0-54.0); HEMOGLOBIN 14.7 g/dL (13.5-17.5); IMMATURE GRANULOCYTES 0.4 % (0-5); LYMPHOCYTE ABS# 1.37 10x3/uL (1.32-3.57); LYMPHOCYTES 24.7 % (15-50); MCH 30.9 pg (26.0-34.0); MCHC 34.3 g/dL (31.0-37.0); MCV 90.3 fL (80.0-100.0); MEAN PLATELET VOLUME 10.3 fL (7.4-10.4); MONOCYTES 7.2 % (2-11); NEUTROPHIL ABS# 3.31 10x3/uL (1.78-5.38); NEUTROPHILS 59.7 % (40-80); PLATELET COUNT 148 10x3/uL (130-400); RBC 4.75 10x6/uL (4.20-6.10); RDW 13.3 % (11.5-14.5); WBC 5.5 10x3/uL (4.8-10.8)
[2020-07-04 07:08] LABS: ANION GAP 7.6 mmol/L (8-16); CALCIUM 8.7 mg/dL (8.5-10.1); CARBON DIOXIDE 29.3 mmol/L (21.0-32.0); CREATININE - SERUM 1.1 mg/dL (0.6-1.3); POTASSIUM - SERUM 3.9 mmol/L (3.5-5.1)
[2020-07-04 08:00] VITALS: BP 114/61
--- NOTE | 2020-07-04 12:04 | NUR ---
SITTING UP IN WC FOR LUNCH. IS GETTING STRONGER AND ABLE TO TRANSFER SELF WITH MINIMAL TO NO HELP. CALL LIGHT IN REACH. FEEDS SELF AFTER TRAY SET UP.
--- NOTE | 2020-07-04 15:58 | NUR ---
Nutrition Follow-up: Diet: Regular Mech Soft with [place] thick liquids + Ensure TID PO intake: 75-100%; he reports a good appetite and states that he drinks Ensure Last BM: 07/02/20 Wt: 180# (06/25/20)- no new weight Meds noted: probiotics Labs noted: Glu 118(H) Recommendations: -Needs new weight -PO diet per CRAYON GRADER recommendations. -Will continue to provide food choices with selective menus and honor food preferences within diet restricitons. -Continue Ensure TID. -RD will follow-up within 7 days.
[2020-07-04 20:03] VITALS: BP 148/75
--- NOTE | 2020-07-04 20:25 | NUR ---
PATIENT RECEIVED SITTING UP IN BED. ASSESSMENT & VITAL SIGNS DONE. NO C/O PAIN OR DISTRESS. BED LOW. ALARM ON. CALL LIGHT WITHIN REACH. WILL CONTINUE TO MONITOR.
--- NOTE | 2020-07-05 03:54 | NUR ---
PATIENT EYES CLOSED. RESPIRATIONS 18 & EVEN. PICKENS PATENT WITH YELLOW COLOR URINE. BED LOW. ALARM ON. CALL LIGHT WITHIN REACH. WILL CONTINUE TO MONITOR. WILL CONTINUE TO MONITOR.
--- NOTE | 2020-07-05 04:13 | NUR ---
I have reviewed this patient and I concur with the Shift Assessment completed by the Licensed Practical Nurse today this shift.
[2020-07-05 08:18] VITALS: BP 109/50
--- NOTE | 2020-07-05 09:15 | NUR ---
HE IS SETTING UP IN THE BED EATING BREAKFAST. HE DENIES ANY PAIN. THE CALL LIGHT IS WITHIN REACH AND THE BED ALARM IS ON.
[2020-07-05 19:00] VITALS: BP 137/69
--- NOTE | 2020-07-05 19:47 | NUR ---
PATIENT RECEIVED LAYING IN BED. ASSESSMENT & VITAL SIGNS DONE. NO C/O PAIN OR DISTRESS. BED LOW. ALARM ON. CALL LIGHT WITHIN REACH. WILL CONTINUE TO MONITOR.
--- NOTE | 2020-07-06 03:34 | NUR ---
PATIENT EYES CLOSED. RESPIRATIONS 18 & EVEN. BED LOW. BEDSIDE TABLE & CALL LIGHT WITHIN REACH. WILL CONTINUE TO MONITOR.
--- NOTE | 2020-07-06 09:10 | NUR ---
HE IS SETTING UP IN THE WHEELCHAIR FOR BREAKFAST. HE HAS A PICKENS. HE DENIES ANY PAIN. THE CALL LIGHT IS WITHIN REACH AND THE BED ALARM IS ON.
[2020-07-06 19:00] VITALS: BP 131/64
--- NOTE | 2020-07-06 19:33 | NUR ---
PATIENT RECEIVED SITTING UP IN BED. ASSESSMENT & VITAL SIGNS DONE. NO C/O PAIN OR DISTRESS. ALARM ON. BED LOW. CALL LIGHT WITHIN REACH. WILL CONTINUE TO MONITOR.
--- NOTE | 2020-07-07 01:35 | NUR ---
I have reviewed this patient and I concur with the Shift Assessment completed by the Licensed Practical Nurse today this shift.
[2020-07-07 07:26] LABS: BASOPHILS 0.5 % (0-2); EOSINOPHILS 8.6 % (0-7); HEMATOCRIT 43.8 % (42.0-54.0); HEMOGLOBIN 14.8 g/dL (13.5-17.5); IMMATURE GRANULOCYTES 0.2 % (0-5); LYMPHOCYTE ABS# 1.24 10x3/uL (1.32-3.57); LYMPHOCYTES 22.2 % (15-50); MCH 30.6 pg (26.0-34.0); MCHC 33.8 g/dL (31.0-37.0); MCV 90.7 fL (80.0-100.0); MEAN PLATELET VOLUME 10.7 fL (7.4-10.4); MONOCYTES 9.1 % (2-11); NEUTROPHIL ABS# 3.31 10x3/uL (1.78-5.38); NEUTROPHILS 59.4 % (40-80); PLATELET COUNT 134 10x3/uL (130-400); RBC 4.83 10x6/uL (4.20-6.10); RDW 13.3 % (11.5-14.5); WBC 5.6 10x3/uL (4.8-10.8)
--- NOTE | 2020-07-07 07:39 | NUR ---
PT RESTING IN BED WITH EYES OPEN CALL LIGHT IN REACH WILL MONITER
[2020-07-07 07:41] LABS: ANION GAP 8.8 mmol/L (8-16); CALCIUM 8.9 mg/dL (8.5-10.1); CREATININE - SERUM 1.1 mg/dL (0.6-1.3); POTASSIUM - SERUM 3.8 mmol/L (3.5-5.1)
[2020-07-07 07:47] VITALS: BP 146/80
--- NOTE | 2020-07-07 13:30 | NUR ---
I have reviewed this patient and I concur with the Shift Assessment completed by the Licensed Practical Nurse today this shift.
--- NOTE | 2020-07-07 17:51 | NUR ---
PT RESTING IN BED WITH EYES OPEN CALL LIGHT IN REACH NO PROBLEMS WILL MONITER
[2020-07-07 19:09] VITALS: BP 114/73
--- NOTE | 2020-07-07 20:00 | NUR ---
PATIENT IS ALERT/ORIENT. CALL LIGHT WITHIN REACH. VOICES NO NEEDS AT THIS TIME. WILL CONTINUE WITH PLAN OF CARE
--- NOTE | 2020-07-08 00:35 | NUR ---
PATIENT RESTING WELL. EYES CLOSED. CALL LIGHT WITHIN REACH
--- NOTE | 2020-07-08 04:31 | NUR ---
PATIENT RESTING WELL. EYES CLOSED. CALL LIGHT WITHIN REACH
--- NOTE | 2020-07-08 07:36 | NUR ---
PT RESTING IN BED WITH EYES OPEN CALL LIGHT IN REACH NO PROBLEMS WILL MONITER
[2020-07-08 07:55] VITALS: BP 128/83
--- NOTE | 2020-07-08 18:38 | NUR ---
PT RESTING IN BED WITH EYES OPEN CALL LIGHT IN REACH NO PROBLEMS WILL MONITER
--- NOTE | 2020-07-08 19:40 | NUR ---
PT IN BED ASLEEP, NO IMMEDIATE NEEDS NOTED, FLUIDS/CL WITHINREACH
[2020-07-08 20:00] VITALS: BP 141/70
[2020-07-09 06:58] LABS: BASOPHILS 0.4 % (0-2); EOSINOPHILS 6.5 % (0-7); HEMATOCRIT 42.7 % (42.0-54.0); HEMOGLOBIN 14.6 g/dL (13.5-17.5); IMMATURE GRANULOCYTES 0.2 % (0-5); LYMPHOCYTE ABS# 1.19 10x3/uL (1.32-3.57); LYMPHOCYTES 25.1 % (15-50); MCH 30.9 pg (26.0-34.0); MCHC 34.2 g/dL (31.0-37.0); MCV 90.5 fL (80.0-100.0); MEAN PLATELET VOLUME 10.4 fL (7.4-10.4); MONOCYTES 9.9 % (2-11); NEUTROPHIL ABS# 2.74 10x3/uL (1.78-5.38); NEUTROPHILS 57.9 % (40-80); PLATELET COUNT 122 10x3/uL (130-400); RBC 4.72 10x6/uL (4.20-6.10); RDW 13.4 % (11.5-14.5); WBC 4.7 10x3/uL (4.8-10.8)
[2020-07-09 07:13] LABS: CALC OSMOLALITY 289 mosm/kg (275-300); CALCIUM 8.9 mg/dL (8.5-10.1); CARBON DIOXIDE 26.8 mmol/L (21.0-32.0); CHLORIDE - SERUM 106 mmol/L (98-107); GLUCOSE 127 mg/dL (74-106); POTASSIUM - SERUM 3.9 mmol/L (3.5-5.1); SODIUM 143 mmol/L (136-145); UREA NITROGEN 22 mg/dL (7-18); eGFR NON AFRICAN AMERICAN 75 mL/min (90-120)
[2020-07-09 07:41] VITALS: BP 125/75
--- NOTE | 2020-07-09 15:14 | NUR ---
Nutrition Re-Assessment Diet: [facility] Thin Liquids PO intake: 75-100% most meals. He did not like his lunch tray today so he ordered a tray with soup and crackers. Last BM: 07/06/20 Wt: 180# (06/25/20) Meds noted: probiotics Labs noted: Glu 127(H) Estimated nutrition needs remain unchanged from initial nutrition assessment at this time. Nutrition diagnosis: Swallowing difficulty r/t CVA AEB patient with altered diet and working with BILLET SHEARER. Patient is currently meeting nutrition goals at this time. Recommendations/Interventions: -Recommend continue current diet (or per BILLET SHEARER recommendations). Will continue to honor food preferences within diet restrictions. -RD will follow-up within 7 days.
--- NOTE | 2020-07-09 16:03 | NUR ---
CARE TEAM MEETING: PATIENT DAUGHTER ATTENDED THE MEETING. HER QUESTIONS AND CONCERN WERE ADDRESSED. A REFRRAL WAS FAXED TO [facility] FOR POSSIBLE ADMISSION AT DISCHARGE . HIS TENATIVE DC DATE IS 07/11/20. WILL CONTINUE TO FOLLOW WITH PATIENT.
[2020-07-09 20:04] VITALS: BP 122/67
--- NOTE | 2020-07-09 21:41 | NUR ---
AWAKE AND ALERT. RESTING IN BED WITH RESPIRATIONS UNLABORED. LEFT ARM FLACCID. LEFT LEG WEAK. PICKENS PATENT. NO ACUTE DISTRESS NOTED. CALL LIGHT IN REACH.
--- NOTE | 2020-07-10 05:13 | NUR ---
QUIET HOURS. NO ACUTE CHANGES IN CONDITION THIS SHIFT. HAD BATH DONE AND LINENS CHANGED. PICKENS PATENT. NO DISTRESS NOTED.
[2020-07-10 07:34] VITALS: BP 111/74
--- NOTE | 2020-07-10 09:33 | NUR ---
HE IS ALERT, HE IS WITH PT NOW. TOOK HIS MEDICATIONS WITHOUT ANY PROBLEMS.
--- NOTE | 2020-07-10 13:51 | NUR ---
PATIENT HAS BEEN ACCPETED TO [facility] AND WILL DISCHARGE THERE ON 07/11/20. WILL CONTINUE TO FOLLOW WITH PATIENT.
--- NOTE | 2020-07-10 19:19 | NUR ---
AWAKE AND ALERT. RESTING IN BED. RESPIRATIONS UNLABORED. NELIA PATENT. CALL LIGHT IN REACH.
[2020-07-10 19:47] VITALS: BP 120/66
--- NOTE | 2020-07-11 05:21 | NUR ---
QUIET HOURS. NO ACUTE CHANGES IN CONDITION THIS SHIFT. RESTING IN BED WITH NO DISTRESS NOTED. NELIA PATENT. CALL LIGHT IN REACH.
[2020-07-11 07:36] VITALS: BP 125/76
--- NOTE | 2020-07-11 08:34 | NUR ---
HE IS SETTING UP IN THE BED TO EAT BREAKFAST, TOOK HIS MEDICATIONS WITHOUT ANY PROBLEMS. HE HAS A PICKENS. HE IS LEAVING TODAY ABOUT 10. THE CALL LIGHT IS WITHIN REACH AND THE BED ALARM IS ON.
--- NOTE | 2020-07-11 10:00 | NUR ---
REPORTED CALLED TO BINH RODRIGUEZ AT [facility]. HE IS DISCHARGING WITH A PICKENS. WAITING FOR THE SLEEVE SETTER LOCKSTITCH VAN.
--- NOTE | 2020-07-11 10:03 | NUR ---
PATIENT DISCHARGING TO [facility]. NO HOME HEALTH OR DME NEEDED AT THIS TIME.DUANE SIGNED, IMM SERVED AND EXPLAINED ONE GIVEN TO PATIENT AND ONE FILED IN CHART. NO COMPARE DATA REVIEWED PER PATIENT FAMILY REQUEST. DR. TAVERAS 08/06/20 @ 4:00, AN APPOINTMENT WITH DR. GARCIA WILL BE MADE WHEN DC FROM THE [facility]. DC INSTRUCTIONS FAXED TO PCP, SNF AND REVIEWED WITH PATIENT.
--- NOTE | 2020-07-11 10:52 | NUR ---
LEAVING WITH THE [employer] DRIVER VIA WHEELCHAIR. PAPERWORK WITH THE SUPERVISOR RESPIRATORY.
== END 2020-07-11 11:38 | DRG 56 ==
LOC: D.REHAB 18:00
PROVIDERS: ADMIT Emergency Medicine; ATTEND Emergency Medicine
DX: I69.30 Unspecified sequelae of cerebral infarction (principal); J18.9 Pneumonia, unspecified organism; R47.01 Aphasia; G81.94 Hemiplegia, unspecified affecting left nondominant side; R13.10 Dysphagia, unspecified; F32.9 Major depressive disorder, single episode, unspecified; M62.81 Muscle weakness (generalized); R26.9 Unspecified abnormalities of gait and mobility; K21.9 Gastro-esophageal reflux disease without esophagitis; M19.90 Unspecified osteoarthritis, unspecified site; Z85.46 Personal history of malignant neoplasm of prostate